=== PATIENT | female | born 1940 | race Caucasian/White ===

== ENCOUNTER → 2016-09-07 | Outpatient (CLI) | payer MEDICARE ==
[~2016-09-07] VITALS: Ht 167.6 cm; Wt 58.1 kg
[~2016-09-07] MED LIST: ATOR1TAB21 PO; IRBE150T12 PO; LIDOCAINE 2% INJ 100 MG/5 ML SDV (FOR ANES.) As Ordered ONE; MULT1TAB10 PO; NS 1,000 ML IV SCH; PROPOFOL 200 MG/20 ML VIAL As Ordered ONE; SYNT50TA PO; TYLE325T5 PO
--- NOTE | 2016-09-07 11:37 | ROOR ---
Patient Name: Jackie Norton Procedure Date: 09/07/2016 11:24 AM Date of : 1940 Age: 76 Room: [facility] Gender: Female Note Status: Finalized Procedure: Upper GI endoscopy Indications: Iron deficiency anemia Providers: Winston Medina MD Referring MD: Iraida Lima DO Requesting Provider: Medicines: Monitored Anesthesia Care Complications: No immediate complications. Procedure: Pre-Anesthesia Assessment: - The heart rate, respiratory rate, oxygen saturations, blood pressure, adequacy of pulmonary ventilation, and response to care were monitored throughout the procedure. The Endoscope was introduced through the mouth, and advanced to the second part of duodenum. The upper GI endoscopy was accomplished without difficulty. The patient tolerated the procedure well. Findings: The Z-line was variable and was found 40 cm from the incisors. The exam of the stomach was otherwise normal. The exam of the duodenum was otherwise normal. Impression: - Z-line variable, 40 cm from the incisors. - No specimens collected. - The examination was otherwise normal. Recommendation: - Patient has a contact number available for emergencies. The signs and symptoms of potential delayed complications were discussed with the patient. Return to normal activities tomorrow. Written discharge instructions were provided to the patient. - Resume previous diet. - Follow an antireflux regimen. - Continue present medications. - Return to referring physician. - The findings and recommendations were discussed with the patient's family. Winston Medina MD Winston Medina MD 09/07/2016 11:37:19 AM This report has been signed electronically. Number of Addenda: 0 Note Initiated On: 09/07/2016 11:24 AM Estimated Blood Loss: Estimated blood loss: none.
--- NOTE | 2016-09-07 11:57 | ROOR ---
Patient Name: Jackie Norton Procedure Date: 09/07/2016 11:25 AM Date of : 1940 Age: 76 Room: [facility] Gender: Female Note Status: Finalized Procedure: Colonoscopy to Cecum Indications: Iron deficiency anemia Providers: Winston Medina MD Referring MD: Iraida Lima DO Requesting Provider: Medicines: Monitored Anesthesia Care Complications: No immediate complications. Procedure: Pre-Anesthesia Assessment: - The heart rate, respiratory rate, oxygen saturations, blood pressure, adequacy of pulmonary ventilation, and response to care were monitored throughout the procedure. The Colonoscope was introduced through the anus and advanced to the cecum, identified by appendiceal orifice and ileocecal valve. The colonoscopy was performed without difficulty. The patient tolerated the procedure well. The quality of the bowel preparation was fair. Findings: The perianal and digital rectal examinations were normal. Non-bleeding internal hemorrhoids were found during retroflexion. The hemorrhoids were small and Grade I (internal hemorrhoids that do not prolapse). Multiple small and large-mouthed diverticula were found in the entire colon. The exam was otherwise without abnormality on direct and retroflexion views. Impression: - Preparation of the colon was fair. - Non-bleeding internal hemorrhoids. - Diverticulosis in the entire examined colon. - The examination was otherwise normal on direct and retroflexion views. - No specimens collected. - The exam was otherwise normal to the cecum. Recommendation: - Patient has a contact number available for emergencies. The signs and symptoms of potential delayed complications were discussed with the patient. Return to normal activities tomorrow. Written discharge instructions were provided to the patient. - High fiber diet. - Discharge patient to home. - Continue present medications. - Repeat colonoscopy for symptoms only, due to age. - Return to referring physician. - The findings and recommendations were discussed with the patient's family. Winston Medina MD Winston Medina MD 09/07/2016 11:57:14 AM This report has been signed electronically. Number of Addenda: 0 Note Initiated On: 09/07/2016 11:25 AM Estimated Blood Loss: Estimated blood loss: none.
[2016-09-07 12:32] VITALS: BP 145/69
== END ==
LOC: M OPP 10:35
PROVIDERS: ATTEND Internal Medicine Gastroenterology
DX: D50.9 Iron deficiency anemia, unspecified (principal); K64.0 First degree hemorrhoids; K57.30 Diverticulosis of large intestine without perforation or abscess without bleeding; K22.8 Other specified diseases of esophagus; E11.9 Type 2 diabetes mellitus without complications; E07.9 Disorder of thyroid, unspecified; I10 Essential (primary) hypertension; E78.00 Pure hypercholesterolemia, unspecified; Z87.891 Personal history of nicotine dependence; Z79.899 Other long term (current) drug therapy

== ENCOUNTER → 2017-04-05 | Outpatient (REF) | payer MEDICARE ==
[~2017-04-05] MED LIST changes: +AMLO5TAB2 PO; +ANUS25SU PR; -LIDOCAINE 2% INJ 100 MG/5 ML SDV (FOR ANES.) As Ordered ONE; +MACR100C43 PO; -NS 1,000 ML IV SCH; -PROPOFOL 200 MG/20 ML VIAL As Ordered ONE; +VITMTA PO
== END ==
LOC: M LAB REF 16:32
PROVIDERS: ATTEND Nurse Practitioner Family
DX: J06.9 Acute upper respiratory infection, unspecified (principal)

== ENCOUNTER 2017-06-06 18:35 | Emergency (ER) | payer MEDICARE ==
[~2017-06-06] VITALS: Ht 167.6 cm; Wt 60.5 kg
[~2017-06-06 18:35] MED LIST changes: -MACR100C43 PO
[2017-06-06 19:51] LABS: BASO % 0.3 % (0.0-1.0); EOS # 0.1 10^3/uL (0.0-0.50); EOS % 0.7 % (0.0-3.0); IMMATURE GRANULOCYTE % 0.4 % (0-0); LYMPH # 1.5 10^3/uL (1.5-4.5); LYMPH % 14.1 % (24.0-44.0); MEAN CORPUSCULAR HEMOGLOBIN 30.8 pg (27.0-33.0); MEAN CORPUSCULAR HGB CONC 32.6 g/dl (32.0-36.5); MEAN CORPUSCULAR VOLUME 94.3 fl (80.0-96.0); MONO # 0.9 10^3/uL (0.0-0.8); MONO % 8.2 % (0.0-5.0); NEUTROPHILS # 8.2 10^3/uL (1.8-7.7); NEUTROPHILS % 76.3 % (36.0-66.0); PLATELET COUNT, AUTOMATED 273 10^3/uL (150-450); WHITE BLOOD COUNT 10.7 10^3/uL (4.0-10.0)
[2017-06-06 20:03] LABS: ANION GAP 8 MEQ/L (8-16); BLOOD UREA NITROGEN 26 MG/DL (7-18); CALCIUM LEVEL 9.1 MG/DL (8.8-10.2); CARBON DIOXIDE LEVEL 26 MEQ/L (21-32); CHLORIDE LEVEL 102 MEQ/L (98-107); CREATININE FOR GFR 0.86 MG/DL (0.55-1.02); GLOMERULAR FILTRATION RATE > 60.0 (>39); GLUCOSE, FASTING 128 MG/DL (83-110); POTASSIUM SERUM 4.5 MEQ/L (3.5-5.1); SODIUM LEVEL 136 MEQ/L (136-145)
[2017-06-06 20:05] LABS: INR 0.98
[2017-06-06 20:31] LABS: ALBUMIN 3.6 GM/DL (3.2-5.2); ALBUMIN/GLOBULIN RATIO 1.24 (1.00-1.93); ALKALINE PHOSPHATASE 56 U/L (45-117); ALT/SGPT 46 U/L (12-78); AST/SGOT 20 U/L (7-37); BILIRUBIN,DIRECT 0.2 MG/DL (0.0-0.2); BILIRUBIN,TOTAL 0.5 MG/DL (0.2-1.0); FREE T4 1.48 NG/DL (0.76-1.46); TOTAL PROTEIN 6.5 GM/DL (6.4-8.2)
[2017-06-06 22:30] VITALS: BP 138/63
[2017-06-06] MEDS ORDERED: NITROFURANTOIN (MACROBID) 100 MG CAP PO ONE (22:30)
[2017-06-06] MEDS ORDERED: MACR100C43 PO (22:30)
--- NOTE | 2017-06-07 09:12 | REP ---
AP PORTABLE CHEST: 06/06/2017. Clinical history: Weakness, possible CHF. Comparison: Chest x-ray 05/31/2017, 05/28/2017. Findings: Lungs are hyperinflated with somewhat flattened diaphragms. Some minor basilar fibrotic change. Cardiomegaly noted. Left atrial enlargement evident. The aorta is calcified at the arch and tortuous. There is venous hypertension without pulmonary edema. No pleural effusion or acute infiltrate. Impression: 1. COPD with some basilar fibrotic change, mild cardiomegaly, pulmonary venous hypertension without edema, effusion or acute infiltrate. 2. Tortuous calcified aorta. Signed by Colt Rogers MD 06/07/2017 05:28 P
--- NOTE | 2017-06-07 12:35 | ECGEPIP ---
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
== END 2017-06-06 23:21 | disposition home or self-care (01) ==
LOC: M ED 18:35
DX: N39.0 Urinary tract infection, site not specified (principal); I50.9 Heart failure, unspecified; I11.0 Hypertensive heart disease with heart failure; Z79.899 Other long term (current) drug therapy; Z86.79 Personal history of other diseases of the circulatory system; Z87.891 Personal history of nicotine dependence

== ENCOUNTER → 2017-06-11 | Outpatient (REF) | payer MEDICARE ==
[~2017-06-11] MED LIST changes: +MACR100C43 PO
== END ==
LOC: M LAB REF 14:10
PROVIDERS: ATTEND Internal Medicine Nephrology
DX: N39.0 Urinary tract infection, site not specified (principal)

== ENCOUNTER → 2017-06-19 | Outpatient (CLI) | payer MEDICARE ==
[~2017-06-19] MED LIST changes: +ISOVUE-370 76% 100ML VIAL (Q9967) As Ordered ONE
--- NOTE | 2017-06-19 16:32 | REP ---
Clinical: Hepatic mass. Technique: Axial precontrast, arterial phase, portal venous phase, and delayed phase images of the abdomen using 100 ml Isovue 370 intravenous contrast material with coronal and sagittal re-formations. Findings: A 3.0 cm mass is identified in the medial posterior right lobe of the liver which demonstrates peripheral enhancement characteristics consistent with hemangioma (Portal venous sequence images 19-31). Liver is otherwise unremarkable. Spleen, pancreas, gallbladder, bilateral adrenal glands and kidneys are relatively normal. Small subcentimeter renal cysts noted. Visualized portions of the enteric system are grossly unremarkable incidental [place] sign noted. No ascites. No free air. Lung bases clear. Impression: Hepatic mass corresponds to benign hemangioma. Signed by Chuy Musa MD 06/19/2017 04:23 P
== END ==
LOC: M RAD 15:10
PROVIDERS: ATTEND Nurse Practitioner Family
DX: E87.1 Hypo-osmolality and hyponatremia (principal)
CPT/HCPCS: 74170; Q9967

== ENCOUNTER 2017-07-29 09:59 | Emergency (ER) | payer MEDICARE | END 2017-07-29 11:39 | disposition home or self-care (01) | LOC: M ED 09:59 | DX: H72.91 Unspecified perforation of tympanic membrane, right ear (principal); I10 Essential (primary) hypertension; Z79.899 Other long term (current) drug therapy | CPT/HCPCS: 99282 ==

== ENCOUNTER 2017-09-05 05:23 | Emergency (ER) | payer MEDICARE ==
[2017-09-05 05:45] LABS: BASO % 0.7 % (0.0-1.0); EOS # 0.1 10^3/uL (0.0-0.50); EOS % 1.2 % (0.0-3.0); HEMATOCRIT 36.1 % (36.0-47.0); HEMOGLOBIN 11.5 g/dl (12.0-16.0); IMMATURE GRANULOCYTE % 0.2 % (0-3.0); LYMPH # 1.5 10^3/uL (1.5-4.5); LYMPH % 27.2 % (24.0-44.0); MEAN CORPUSCULAR HEMOGLOBIN 30.3 pg (27.0-33.0); MEAN CORPUSCULAR HGB CONC 31.9 g/dl (32.0-36.5); MONO # 0.6 10^3/uL (0.0-0.8); MONO % 10.4 % (0.0-5.0); NEUTROPHILS # 3.4 10^3/uL (1.8-7.7); NEUTROPHILS % 60.3 % (36.0-66.0); PLATELET COUNT, AUTOMATED 239 10^3/uL (150-450); RED CELL DISTRIBUTION WIDTH 12.6 % (11.5-14.5); WHITE BLOOD COUNT 5.7 10^3/uL (4.0-10.0)
[2017-09-05 06:20] LABS: ANION GAP 8 MEQ/L (8-16); BLOOD UREA NITROGEN 23 MG/DL (7-18); CALCIUM LEVEL 8.7 MG/DL (8.8-10.2); CARBON DIOXIDE LEVEL 29 MEQ/L (21-32); CHLORIDE LEVEL 105 MEQ/L (98-107); CPK CREATINE PHOSPHOKINASE 93 U/L (26-192); CREATININE FOR GFR 0.78 MG/DL (0.55-1.30); FREE T4 1.22 NG/DL (0.76-1.46); GLOMERULAR FILTRATION RATE > 60.0 (>39); GLUCOSE, FASTING 117 MG/DL (70-100); SODIUM LEVEL 142 MEQ/L (136-145); TROPONIN I < 0.02 NG/ML (< 0.10)
[2017-09-05 06:26] LABS: MB/CK RELATIVE INDEX 3.22 (< OR =4)
[2017-09-05 07:00] LABS: INFLUENZA A AMPLIFICATION NEGATIVE (NEGATIVE); INFLUENZA B AMPLIFICATION NEGATIVE (NEGATIVE)
[2017-09-05] MEDS: ACETAMINOPHEN TAB 650MG DOSE (2X325MG) PO (07:33)
== END 2017-09-05 07:38 | disposition home or self-care (01) ==
LOC: M ED 05:23
DX: B34.9 Viral infection, unspecified (principal); H72.91 Unspecified perforation of tympanic membrane, right ear; I49.3 Ventricular premature depolarization; I50.9 Heart failure, unspecified; I11.0 Hypertensive heart disease with heart failure; E78.9 Disorder of lipoprotein metabolism, unspecified; Z79.890 Hormone replacement therapy; Z79.2 Long term (current) use of antibiotics; Z79.899 Other long term (current) drug therapy; Z86.19 Personal history of other infectious and parasitic diseases; Z87.891 Personal history of nicotine dependence
CPT/HCPCS: 71045

== ENCOUNTER → 2017-12-20 | Outpatient (REF) | payer MEDICARE | LOC: M LAB REF 13:11 | DX: N39.0 Urinary tract infection, site not specified (principal) | CPT/HCPCS: 87086 ==

== ENCOUNTER → 2018-04-25 | Outpatient (REF) | payer MEDICARE | LOC: M LAB REF 13:10 | DX: N39.0 Urinary tract infection, site not specified (principal) | CPT/HCPCS: 87086 ==

== ENCOUNTER → 2019-01-08 | Outpatient (REF) | payer MEDICARE ==
[~2019-01-08] MED LIST changes: -AMLO5TAB2 PO; +AMLO5TAB6 PO; +AUGM875T28 PO; -ISOVUE-370 76% 100ML VIAL (Q9967) As Ordered ONE; +OFLOSO
[2019-01-08 14:48] LABS: IRON (FE) 66 UG/DL (50-170); PERCENT SATURATION 23.9 % (13.2-45.0); TOTAL IRON BINDING CAPACITY 276 UG/DL (250-450)
[2019-01-08 14:53] LABS: FOLATE > 24.0 NG/ML; VITAMIN B12 LEVEL 248 PG/ML
== END ==
LOC: M LAB REF 12:58
PROVIDERS: ATTEND Internal Medicine
DX: D64.9 Anemia, unspecified (principal)

== ENCOUNTER → 2019-02-02 | Outpatient (REF) | payer MEDICARE ==
[2019-02-02 13:16] LABS: HEMATOCRIT 30.8 % (36.0-47.0)
[2019-02-02 13:21] LABS: PERCENT SATURATION 35.2 % (13.2-45.0)
== END ==
LOC: M LAB REF 12:39
PROVIDERS: ATTEND Nurse Practitioner Adult Health
DX: D64.9 Anemia, unspecified (principal)

== ENCOUNTER → 2019-04-28 | Outpatient (REF) | payer MEDICARE ==
[2019-04-28 14:02] LABS: FOLATE > 24.0 NG/ML; IRON (FE) 73 UG/DL (50-170); PERCENT SATURATION 27.3 % (13.2-45.0); TOTAL IRON BINDING CAPACITY 267 UG/DL (250-450); VITAMIN B12 LEVEL 282 PG/ML
== END ==
LOC: M LAB REF 12:47
PROVIDERS: ATTEND Nurse Practitioner Family
DX: N18.9 Chronic kidney disease, unspecified (principal); D63.1 Anemia in chronic kidney disease

== ENCOUNTER → 2019-05-12 | Outpatient (CLI) | payer MEDICARE ==
[~2019-05-12] MED LIST changes: +GASTROGRAFIN SOLUTION 30ML (Q9963) As Ordered ONE; +ISOVUE-370 76% 100ML VIAL (Q9967) As Ordered ONE
--- NOTE | 2019-05-12 15:12 | REP ---
REASON FOR EXAM: Weight loss and hematuria. The lack of intravenous contrast decreases the sensitivity of the exam. Prior examination of 06/19/2017 was reviewed. That examination was performed before and after intravenous contrast; however, the noncontrast-enhanced portion of that examination was of the abdomen only. The prior exam showed a benign hepatic hemangioma. There is no significant change in appearance of the lung bases. There is cylindrical bronchiectasis and mild basilar fibrotic change, status quo. Limited evaluation of the liver again shows a low density lesion in the posterior segment of the right lobe, which is unchanged, consistent with the previously diagnosed benign hepatic hemangioma. The gallbladder is within normal limits. There are unchanged bilateral renal cysts. There are no nephroliths. There are no ureteroliths. There is gaseous distention of the stomach. There are multiple dilated gas and contrast-filled small bowel loops. There is marked colonic redundancy. Nonopacified bowel abuts the retroperitoneum. Retroperitoneal adenopathy could not be ruled out by this exam. CT PELVIS: There is marked thickening of the morfin of the urinary bladder, and there are multiple urinary bladder wall diverticula. Evaluation of these findings is limited due to the lack of intravenous contrast administration. I cannot rule out the possibility of a bladder mass wall or other pelvic mass since the pelvic bowel loops are noncontrast opacified and no intravenous contrast was administered. There are bilateral pelvic phleboliths. Bone window technique throughout the exam shows the bones to be demineralized with spinal, hip, and sacroiliac joint degenerative changes. IMPRESSION: 1. Chronic lung base changes, as described above. 2. There is gaseous distention of the stomach, of uncertain etiology. This needs to correlated clinically. 3. There is evidence of an ileus. 4. Markedly abnormal urinary bladder, as described above. Cystitis and/or neoplastic change cannot be ruled out by this exam. 5. Simple bilateral renal cysts. 6. Other findings and limitations as described above. Electronically Signed by Rashaad Diaz DO 05/12/2019 03:49 P
== END ==
LOC: M RAD 12:41
PROVIDERS: ATTEND Nurse Practitioner Family
DX: J47.9 Bronchiectasis, uncomplicated (principal); N28.1 Cyst of kidney, acquired; N32.3 Diverticulum of bladder; R31.9 Hematuria, unspecified; M85.89 Other specified disorders of bone density and structure, multiple sites; R63.4 Abnormal weight loss
CPT/HCPCS: 74176; Q9963

== ENCOUNTER → 2019-05-13 | Outpatient (REF) | payer MEDICARE ==
[~2019-05-13] MED LIST changes: -GASTROGRAFIN SOLUTION 30ML (Q9963) As Ordered ONE; -ISOVUE-370 76% 100ML VIAL (Q9967) As Ordered ONE
[2019-05-13 17:47] LABS: HEMATOCRIT 27.4 % (36.0-47.0)
[2019-05-13 18:28] LABS: PERCENT SATURATION 26.2 % (13.2-45.0)
== END ==
LOC: M LAB REF 17:10
PROVIDERS: ATTEND Nurse Practitioner Adult Health
DX: D64.9 Anemia, unspecified (principal)

== ENCOUNTER → 2019-05-18 | Outpatient (REF) | payer MEDICARE ==
[2019-05-18 14:00] LABS: APPEARANCE, URINE TURBID (CLEAR); BACTERIA, URINE AUTO 2+ (NEGATIVE); BILIRUBIN, URINE AUTO NEGATIVE (NEGATIVE); BLOOD, URINE BLOOD 2+ (NEGATIVE); COLOR, URINE AMBER (YELLOW); GLUCOSE, URINE (UA) AUTO NEGATIVE (NEGATIVE); KETONE, URINE AUTO TRACE mg/dL (NEGATIVE); LEUKOCYTE ESTERASE, URINE AUTO 1+ (NEGATIVE); NITRITE, URINE AUTO NEGATIVE (NEGATIVE); PROTEIN, URINE AUTO 2+ mg/dL (NEGATIVE); RBC, URINE AUTO 81 /HPF (0-3); SPECIFIC GRAVITY URINE AUTO 1.011 (1.002-1.035); SQUAMOUS EPITHELIAL CELL UR AU 0 /HPF (0-6); UROBILINOGEN, URINE AUTO 0.2 mg/dL (0.0-2.0); WBC, URINE AUTO TNTC /HPF (0-3)
== END ==
LOC: M SMT 13:31
PROVIDERS: ATTEND Nurse Practitioner Women's Health
DX: R31.29 Other microscopic hematuria (principal)
CPT/HCPCS: 81001; 87086; 88108; G0463

== ENCOUNTER → 2019-05-21 | Outpatient (REF) | payer MEDICARE | LOC: M LAB REF 12:20 | PROVIDERS: ATTEND Nurse Practitioner Adult Health | DX: D64.9 Anemia, unspecified (principal); R31.29 Other microscopic hematuria ==

== ENCOUNTER → 2019-06-03 | Outpatient (REF) | payer MEDICARE ==
[2019-06-03 14:01] LABS: BACTERIA, URINE AUTO 1+ (NEGATIVE); RBC, URINE AUTO 12 /HPF (0-3); SQUAMOUS EPITHELIAL CELL UR AU 0 /HPF (0-6); WBC, URINE AUTO TNTC /HPF (0-3)
== END ==
LOC: M SMT 13:34
PROVIDERS: ATTEND Specialist
DX: N32.89 Other specified disorders of bladder (principal)
CPT/HCPCS: 52281; 81015; 87086; G0463

== ENCOUNTER → 2019-08-04 | Outpatient (CLI) | payer MEDICARE ==
[~2019-08-04] MED LIST changes: -IRBE150T12 PO; +IRBE150T7 PO
--- NOTE | 2019-08-04 12:05 | REP ---
RENAL ULTRASOUND: Real-time sonographic evaluation of the kidneys performed. Both kidneys are hyperechoic suggesting medical renal disease. Right kidney measures 10.3 x 5.3 x 3.5 cm and left kidney 11.4 x 5.0 x 4.8 cm. There is no hydronephrosis bilaterally. Multiple small cysts are seen in each kidney, largest on the right is in the mid aspect laterally 1.4 cm in maximum diameter with a 7 mm cyst seen in upper pole and 9 mm cyst in the lower pole. Largest cyst on the left is in the upper aspect 1.5 cm in maximum diameter with an adjacent smaller cyst just inferior to that 1.3 cm in maximum diameter. IMPRESSION: Echogenic kidneys suggesting medical renal disease. No hydronephrosis. Small bilateral renal cysts. Electronically Signed by Tan Hennessy MD 08/05/2019 09:50 A
--- NOTE | 2019-08-04 12:09 | REP ---
BLADDER ULTRASOUND: Real-time sonographic evaluation of the bladder performed. Bladder measures 10.2 x 11.9 x 7.8 cm for a total volume of 618 mL. Postvoid residual is 443 mL which is 72% of the original volume. Bladder wall is markedly trabeculated and irregular. Echogenic debris is seen within the bladder as well. Large posterior diverticulum is present. Ureteral jets are not visualized in the bladder with Doppler color evaluation. IMPRESSION: Markedly trabeculated irregular thickened bladder wall diffusely. Echogenic debris in the bladder. Significant post-void residual. Electronically Signed by Tan Hennessy MD 08/05/2019 09:50 A
== END ==
LOC: M RAD 10:19
PROVIDERS: ATTEND Nurse Practitioner Women's Health
DX: N32.89 Other specified disorders of bladder (principal); N32.3 Diverticulum of bladder

== ENCOUNTER → 2019-08-07 | Outpatient (REF) | payer MEDICARE ==
[~2019-08-07] MED LIST changes: +IRBE150T12 PO; -IRBE150T7 PO
[2019-08-07 14:15] LABS: APPEARANCE, URINE CLOUDY (CLEAR); BACTERIA, URINE AUTO 2+ (NEGATIVE); BILIRUBIN, URINE AUTO NEGATIVE (NEGATIVE); BLOOD, URINE BLOOD 1+ (NEGATIVE); COLOR, URINE YELLOW (YELLOW); GLUCOSE, URINE (UA) AUTO NEGATIVE (NEGATIVE); KETONE, URINE AUTO NEGATIVE (NEGATIVE); LEUKOCYTE ESTERASE, URINE AUTO 3+ (NEGATIVE); NITRITE, URINE AUTO NEGATIVE (NEGATIVE); PROTEIN, URINE AUTO 1+ mg/dL (NEGATIVE); RBC, URINE AUTO 74 /HPF (0-3); SPECIFIC GRAVITY URINE AUTO 1.013 (1.002-1.035); SQUAMOUS EPITHELIAL CELL UR AU 4 /HPF (0-6); UROBILINOGEN, URINE AUTO 0.2 mg/dL (0.0-2.0); WBC, URINE AUTO TNTC /HPF (0-3)
== END ==
LOC: M SMT 13:33
PROVIDERS: ATTEND Nurse Practitioner Women's Health
DX: R31.29 Other microscopic hematuria (principal)
CPT/HCPCS: 51798; 81001; 87086; G0463

== ENCOUNTER → 2019-08-18 | Outpatient (REF) | payer MEDICARE ==
[2019-08-19 10:20] LABS: VITAMIN B12 LEVEL 994 PG/ML (247-911)
== END ==
LOC: M LAB REF 16:33
PROVIDERS: ATTEND Nurse Practitioner Adult Health
DX: R41.3 Other amnesia (principal); D51.9 Vitamin B12 deficiency anemia, unspecified

== ENCOUNTER → 2020-03-14 | Outpatient (CLI) | payer MEDICARE ==
[~2020-03-14] MED LIST changes: +AMLO1TAB24 PO; -AMLO5TAB6 PO; -IRBE150T12 PO; +IRBE150T7 PO
== END ==
LOC: M RAD 08:00
PROVIDERS: ATTEND Internal Medicine
DX: H54.52A1 Low vision left eye category 1, normal vision right eye (principal)

== ENCOUNTER → 2020-03-15 | Outpatient (REF) | payer MEDICARE ==
[2020-05-02 21:57] LABS: BASO % 0.3 % (0.0-1.0); EOS # 0.1 10^3/uL (0.0-0.5); HEMATOCRIT 36.4 % (36.0-47.0); HEMOGLOBIN 11.2 g/dl (12.0-15.5); LYMPH # 1.7 10^3/uL (1.5-5.0); LYMPH % 27.1 % (24.0-44.0); MEAN CORPUSCULAR HEMOGLOBIN 30.4 pg (27.0-33.0); MEAN CORPUSCULAR HGB CONC 30.8 g/dl (32.0-36.5); MEAN CORPUSCULAR VOLUME 98.6 fl (80.0-96.0); MONO # 0.5 10^3/uL (0.0-0.8); MONO % 8.4 % (0.0-5.0); NEUTROPHILS # 3.9 10^3/uL (1.5-8.5); NEUTROPHILS % 62.9 % (36.0-66.0); PLATELET COUNT, AUTOMATED 258 10^3/uL (150-450); RED BLOOD COUNT 3.69 10^6/uL (4.00-5.40); WHITE BLOOD COUNT 6.2 10^3/uL (4.0-10.0)
[2020-05-02 22:22] LABS: APPEARANCE, URINE CLOUDY (CLEAR); BACTERIA, URINE AUTO 1+ (NEGATIVE); BILIRUBIN, URINE AUTO NEGATIVE (NEGATIVE); BLOOD, URINE BLOOD 1+ (NEGATIVE); COLOR, URINE YELLOW (YELLOW); GLUCOSE, URINE (UA) AUTO NEGATIVE (NEGATIVE); KETONE, URINE AUTO NEGATIVE (NEGATIVE); LEUKOCYTE ESTERASE, URINE AUTO 1+ (NEGATIVE); MUCUS, URINE SMALL (NEGATIVE); NITRITE, URINE AUTO POSITIVE (NEGATIVE); PROTEIN, URINE AUTO NEGATIVE (NEGATIVE); RBC, URINE AUTO 4 /HPF (0-3); SQUAMOUS EPITHELIAL CELL UR AU 1 /HPF (0-6); UROBILINOGEN, URINE AUTO 0.2 mg/dL (0.0-2.0); WBC, URINE AUTO TNTC /HPF (0-3)
[2020-05-09 04:54] LABS: ALBUMIN 3.5 GM/DL (3.2-5.2); BLOOD UREA NITROGEN 27 MG/DL (7-18); CALCIUM LEVEL 8.9 MG/DL (8.8-10.2); CARBON DIOXIDE LEVEL 27 MEQ/L (21-32); CHLORIDE LEVEL 105 MEQ/L (98-107); CREATININE FOR GFR 0.79 MG/DL (0.55-1.30); GLOMERULAR FILTRATION RATE > 60.0 (>32); GLUCOSE, FASTING 86 MG/DL (70-100); PHOSPHORUS LEVEL 3.6 MG/DL (2.5-4.9); POTASSIUM SERUM 4.4 MEQ/L (3.5-5.1); SODIUM LEVEL 137 MEQ/L (136-145)
== END ==
LOC: SKLAB3 07:00
PROVIDERS: ATTEND Internal Medicine
DX: D64.9 Anemia, unspecified (principal); N18.3 Chronic kidney disease, stage 3 (moderate)

== ENCOUNTER → 2020-03-15 | Outpatient (REF) | payer MEDICARE | LOC: CANPREREF → SKLAB3 14:03 | PROVIDERS: ATTEND Internal Medicine | DX: D64.9 Anemia, unspecified (principal); N18.3 Chronic kidney disease, stage 3 (moderate) ==

== ENCOUNTER → 2020-06-09 | Outpatient (REF) | LOC: SKLAB3 11:50 | PROVIDERS: ATTEND Internal Medicine | DX: Z20.828 Contact with and (suspected) exposure to other viral communicable diseases (principal) ==

== ENCOUNTER → 2020-06-15 | Outpatient (REF) | payer MEDICARE | LOC: SKLAB3 06-14 14:21 → EDSTATUS 07-07 12:59 | PROVIDERS: ATTEND Internal Medicine | DX: Z20.818 Contact with and (suspected) exposure to other bacterial communicable diseases (principal) ==

== ENCOUNTER → 2020-06-22 | Outpatient (REF) | payer MEDICARE | LOC: SKLAB3 08:00 | PROVIDERS: ATTEND Internal Medicine | DX: Z20.828 Contact with and (suspected) exposure to other viral communicable diseases (principal) ==

== ENCOUNTER → 2020-06-27 | Outpatient (REF) | payer MEDICARE ==
[2020-06-27 12:49] LABS: BLOOD UREA NITROGEN 27 MG/DL (7-18); CALCIUM LEVEL 9.1 MG/DL (8.8-10.2); CARBON DIOXIDE LEVEL 27 MEQ/L (21-32); CHLORIDE LEVEL 109 MEQ/L (98-107); CREATININE FOR GFR 0.92 MG/DL (0.55-1.30); GLOMERULAR FILTRATION RATE > 60.0 (>32); GLUCOSE, FASTING 122 MG/DL (70-100); POTASSIUM SERUM 4.4 MEQ/L (3.5-5.1); SODIUM LEVEL 141 MEQ/L (136-145); THYROID STIMULATING HORMONE 0.039 uIU/ML (0.358-3.740)
== END ==
LOC: SKLAB3 07:00
PROVIDERS: ATTEND Internal Medicine
DX: E03.9 Hypothyroidism, unspecified (principal); F03.90 Unspecified dementia, unspecified severity, without behavioral disturbance, psychotic disturbance, mood disturbance, and anxiety

== ENCOUNTER → 2020-06-29 | Outpatient (REF) | payer MEDICARE | LOC: SKLAB3 08:00 | PROVIDERS: ATTEND Internal Medicine | DX: Z20.828 Contact with and (suspected) exposure to other viral communicable diseases (principal) ==

== ENCOUNTER → 2020-07-01 | Outpatient (REF) | payer MEDICARE ==
--- NOTE | 2020-07-01 11:45 | ECGEPIP ---
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
== END ==
LOC: SKLAB3 10:09
PROVIDERS: ATTEND Internal Medicine
DX: I51.7 Cardiomegaly (principal)

== ENCOUNTER → 2020-07-06 | Outpatient (REF) | payer MEDICARE | LOC: SKLAB3 07:18 | PROVIDERS: ATTEND Internal Medicine | DX: Z20.828 Contact with and (suspected) exposure to other viral communicable diseases (principal) ==

== ENCOUNTER → 2020-07-11 | Outpatient (REF) | payer MEDICARE ==
[2020-07-11 15:15] LABS: HEMATOCRIT 33.2 % (36.0-47.0); HEMOGLOBIN 9.9 g/dl (12.0-15.5); MEAN CORPUSCULAR HEMOGLOBIN 29.1 pg (27.0-33.0); MEAN CORPUSCULAR HGB CONC 29.8 g/dl (32.0-36.5); MEAN CORPUSCULAR VOLUME 97.6 fl (80.0-96.0); PLATELET COUNT, AUTOMATED 201 10^3/uL (150-450)
[2020-07-11 15:39] LABS: NT-PRO BNP 790 PG/ML (<450); TROPONIN I < 0.02 NG/ML (< 0.10)
[2020-07-11 15:45] LABS: CALCIUM LEVEL 8.8 MG/DL (8.8-10.2); CREATININE FOR GFR 0.95 MG/DL (0.55-1.30); POTASSIUM SERUM 4.1 MEQ/L (3.5-5.1); THYROID STIMULATING HORMONE 0.281 uIU/ML (0.358-3.740)
--- NOTE | 2020-07-11 17:04 | REP ---
INDICATION: SOB. COMPARISON: Comparison radiograph September 05, 2017.. TECHNIQUE: Portable upright AP radiograph. FINDINGS: Lungs are somewhat hyperinflated. There is very slight blunting of the right lateral pleural angle. A mild bibasilar interstitial pattern is seen. Heart is mildly enlarged. The aorta is tortuous. Pulmonary vasculature is not increased. There is diffuse osteopenia. No definite infiltrate. IMPRESSION: Slight blunting right lateral pleural angle. Mild cardiomegaly. No definite infiltrate. <Electronically signed by Arslan Garzon > 07/11/20 [id number]
--- NOTE | 2020-07-12 08:36 | ECGEPIP ---
[facility] Test Date: 2020-07-11 Pat Name: CIPRIANO LOPEZ Department: Room: - Gender: Female Rda: RF : 1940 Requested By: Wolfgang Olivier Order Number: [id number] Reading MD: Matthew Noel Measurements Intervals [place] Rate: 60 P: 71 [place]: 176 QRS: 62 QRSD: 89 T: 75 QT: 412 QTc: 415 Interpretive Statements Normal sinus rhythm. Isolated PVC. Different precordial lead placement but otherwise unchanged from 07/01/20 Electronically Signed on 07-12-2020 8:35:52 EST by Matthew Noel
== END ==
LOC: SKLAB3 14:14
PROVIDERS: ATTEND Internal Medicine
DX: I51.7 Cardiomegaly (principal); M85.9 Disorder of bone density and structure, unspecified; Z79.899 Other long term (current) drug therapy

== ENCOUNTER → 2020-07-12 | Outpatient (REF) | payer MEDICARE | LOC: SKLAB3 09:57 | PROVIDERS: ATTEND Internal Medicine | DX: R06.02 Shortness of breath (principal) ==

== ENCOUNTER → 2020-07-13 | Outpatient (REF) | payer MEDICARE | LOC: SKLAB3 10:29 | PROVIDERS: ATTEND Internal Medicine | DX: Z20.828 Contact with and (suspected) exposure to other viral communicable diseases (principal) ==

== ENCOUNTER → 2020-07-19 | Outpatient (CLI) | payer MEDICARE, MEDICAID ==
--- NOTE | 2020-07-21 12:22 | ECHO ---
DATE OF PROCEDURE: 07/19/2020 Age: 80 Gender: Female Height: Weight: REFERRING PHYSICIAN: Wolfgang Olivier Jr., M.D. REASON FOR STUDY: Shortness of breath. 2D MEASUREMENTS: IVS 1.1 cm LV 3.9 cm LVPW 1.0 cm LA 3.3 cm Aorta 3.3 cm IVC 2.0 cm DOPPLER MEASUREMENT Peak velocity across the aortic valve 1.8 msec Peak velocity across the LVOT 0.75 msec Peak gradient across the aortic valve 13 mmHg Mean gradient across the aortic valve 6 mmHg Mitral E 1.3 Mitral A 1.5 with a ratio of 0.9 Maximum tricuspid valve velocity 2.7 msec 2D COMMENTS: * Normal left ventricular size, wall thickness, and normal global left ventricular systolic function. The estimated left ventricular systolic ejection fraction is 60% to 65%. * Normal left atrium. Normal right atrium and right ventricle. * The atrial septum appeared to be normal without evidence of defect or shunt. * Normal aortic root. * A small pericardial effusion was noted. No evidence of cardiac tamponade. * Mildly calcified aortic valve with normal leaflet excursion. Mildly calcified mitral annulus with normal anterior mitral valve leaflet motion. Normal tricuspid valve and pulmonic valve. The proximal pulmonary artery branches were not well visualized. * The inferior vena cava is mildly enlarged, central venous pressure might be elevated. DOPPLER: It detects mild aortic regurgitation, moderate mitral regurgitation, and moderate tricuspid regurgitation. The calculated pulmonary artery systolic pressure varies between 30-40 mmHg. Abnormal relaxation pattern was noted across the mitral valve leaflets, as well as the mitral valve annulus consistent with features of grade 1 left ventricular diastolic dysfunction. IMPRESSION: * Normal global left ventricular systolic function. There are some features of grade 1 left ventricular diastolic dysfunction manifested by abnormal relaxation. * Aortic valve sclerosis with mild aortic regurgitation and trivial aortic stenosis. * Mitral annular calcification with moderate mitral regurgitation. * Moderate tricuspid regurgitation with mild pulmonary hypertension. * A small pericardial effusion was noted, no evidence of cardiac tamponade. MTDD
== END ==
LOC: M CARPUL 08:29
PROVIDERS: ATTEND Internal Medicine
DX: J90 Pleural effusion, not elsewhere classified (principal); I35.0 Nonrheumatic aortic (valve) stenosis

== ENCOUNTER → 2020-07-20 | Outpatient (REF) | payer MEDICARE | LOC: SKLAB3 07:00 | PROVIDERS: ATTEND Internal Medicine | DX: Z20.828 Contact with and (suspected) exposure to other viral communicable diseases (principal) ==

== ENCOUNTER → 2020-07-27 | Outpatient (REF) | payer MEDICARE | LOC: SKLAB3 07:00 | PROVIDERS: ATTEND Internal Medicine | DX: Z20.828 Contact with and (suspected) exposure to other viral communicable diseases (principal) ==

== ENCOUNTER → 2020-08-03 | Outpatient (REF) | payer MEDICARE | LOC: SKLAB3 10:05 | PROVIDERS: ATTEND Internal Medicine | DX: Z11.52 Encounter for screening for COVID-19 (principal) ==

== ENCOUNTER → 2020-08-10 | Outpatient (REF) | payer MEDICARE | LOC: SKLAB3 07:00 | PROVIDERS: ATTEND Internal Medicine | DX: Z20.822 Contact with and (suspected) exposure to COVID-19 (principal) ==

== ENCOUNTER → 2020-08-17 | Outpatient (REF) | payer MEDICARE | LOC: SKLAB3 06:59 | PROVIDERS: ATTEND Internal Medicine | DX: Z20.822 Contact with and (suspected) exposure to COVID-19 (principal) ==

== ENCOUNTER → 2020-08-24 | Outpatient (REF) | payer MEDICARE | LOC: SKLAB3 08:00 | PROVIDERS: ATTEND Internal Medicine | DX: Z20.822 Contact with and (suspected) exposure to COVID-19 (principal) ==

== ENCOUNTER → 2020-08-30 | Outpatient (REF) | payer MEDICARE ==
[2020-08-30 09:04] LABS: CHOLESTEROL RISK RATIO 1.8 (<5); THYROID STIMULATING HORMONE 2.75 uIU/ML (0.358-3.740)
[2020-08-30 10:20] LABS: HEMOGLOBIN A1c 5.8 %
== END ==
LOC: SKLAB3 07:00
PROVIDERS: ATTEND Internal Medicine
DX: E03.9 Hypothyroidism, unspecified (principal); E78.5 Hyperlipidemia, unspecified; E11.9 Type 2 diabetes mellitus without complications

== ENCOUNTER → 2020-08-31 | Outpatient (REF) | payer MEDICARE | LOC: SKLAB3 07:00 | PROVIDERS: ATTEND Internal Medicine | DX: Z11.52 Encounter for screening for COVID-19 (principal) ==

== ENCOUNTER → 2020-09-07 | Outpatient (REF) | payer MEDICARE | LOC: SKLAB3 11:39 | PROVIDERS: ATTEND Internal Medicine | DX: Z20.822 Contact with and (suspected) exposure to COVID-19 (principal) ==

== ENCOUNTER → 2020-09-13 | Outpatient (REF) | payer MEDICARE ==
[2020-09-13 11:04] LABS: HEMATOCRIT 34.8 % (36.0-47.0); HEMOGLOBIN 10.7 g/dl (12.0-15.5); MEAN CORPUSCULAR HEMOGLOBIN 30.4 pg (27.0-33.0); MEAN CORPUSCULAR HGB CONC 30.7 g/dl (32.0-36.5); MEAN CORPUSCULAR VOLUME 98.9 fl (80.0-96.0); PLATELET COUNT, AUTOMATED 215 10^3/uL (150-450); RED BLOOD COUNT 3.52 10^6/uL (4.00-5.40); WHITE BLOOD COUNT 7.3 10^3/uL (4.0-10.0)
[2020-09-13 11:24] LABS: HEMOGLOBIN A1c 6.2 %
[2020-09-13 11:32] LABS: ALBUMIN 3.2 GM/DL (3.2-5.2); ALT/SGPT 39 U/L (12-78); BILIRUBIN,TOTAL 0.3 MG/DL (0.2-1.0); BLOOD UREA NITROGEN 21 MG/DL (7-18); CALCIUM LEVEL 8.4 MG/DL (8.8-10.2); CARBON DIOXIDE LEVEL 31 MEQ/L (21-32); CHLORIDE LEVEL 105 MEQ/L (98-107); CHOLESTEROL LEVEL 106 MG/DL (<200); CHOLESTEROL RISK RATIO 1.927 (<5); CREATININE FOR GFR 0.82 MG/DL (0.55-1.30); GLOMERULAR FILTRATION RATE > 60.0 (>32); GLUCOSE, FASTING 116 MG/DL (70-100); HDL CHOLESTEROL 55 MG/DL (>40); LDL CHOLESTEROL 29 MG/DL (<100); NON-HDL-C 51 MG/DL; SODIUM LEVEL 142 MEQ/L (136-145); TOTAL PROTEIN 5.8 GM/DL (6.4-8.2); TRIGLYCERIDES LEVEL 108 MG/DL (<150)
[2020-09-13 11:40] LABS: VITAMIN B12 LEVEL 616 PG/ML (247-911)
== END ==
LOC: SKLAB3 06:59
PROVIDERS: ATTEND Internal Medicine
DX: F03.90 Unspecified dementia, unspecified severity, without behavioral disturbance, psychotic disturbance, mood disturbance, and anxiety (principal); E03.9 Hypothyroidism, unspecified; E78.5 Hyperlipidemia, unspecified; Z79.899 Other long term (current) drug therapy

== ENCOUNTER → 2020-09-14 | Outpatient (REF) | payer MEDICARE | LOC: SKLAB3 07:00 | PROVIDERS: ATTEND Internal Medicine | DX: Z20.822 Contact with and (suspected) exposure to COVID-19 (principal) ==

== ENCOUNTER → 2020-09-15 | Outpatient (REF) | payer MEDICARE ==
[2020-09-15 15:24] LABS: BASO % 0.6 % (0.0-1.0); EOS # 0.1 10^3/uL (0.0-0.5); EOS % 1.9 % (0.0-3.0); HEMATOCRIT 36.2 % (36.0-47.0); HEMOGLOBIN 10.9 g/dl (12.0-15.5); LYMPH # 1.8 10^3/uL (1.5-5.0); MEAN CORPUSCULAR HEMOGLOBIN 29.9 pg (27.0-33.0); MEAN CORPUSCULAR HGB CONC 30.1 g/dl (32.0-36.5); MEAN CORPUSCULAR VOLUME 99.5 fl (80.0-96.0); MONO # 0.7 10^3/uL (0.0-0.8); MONO % 10.2 % (2.0-8.0); NEUTROPHILS # 4.2 10^3/uL (1.5-8.5); NEUTROPHILS % 60.7 % (36.0-66.0); PLATELET COUNT, AUTOMATED 213 10^3/uL (150-450); RED BLOOD COUNT 3.64 10^6/uL (4.00-5.40); WHITE BLOOD COUNT 6.9 10^3/uL (4.0-10.0)
[2020-09-15 15:42] LABS: MAGNESIUM LEVEL 2.3 MG/DL (1.8-2.4)
[2020-09-15 16:21] LABS: PTH INTACT 51.6 PG/ML (18.5-88.0)
[2020-09-15 16:28] LABS: APPEARANCE, URINE CLOUDY (CLEAR); BACTERIA, URINE AUTO 2+ (NEGATIVE); BILIRUBIN, URINE AUTO NEGATIVE (NEGATIVE); BLOOD, URINE BLOOD 1+ (NEGATIVE); COLOR, URINE YELLOW (YELLOW); GLUCOSE, URINE (UA) AUTO NEGATIVE (NEGATIVE); KETONE, URINE AUTO NEGATIVE (NEGATIVE); LEUKOCYTE ESTERASE, URINE AUTO 3+ (NEGATIVE); MUCUS, URINE SMALL (NEGATIVE); NITRITE, URINE AUTO POSITIVE (NEGATIVE); PROTEIN, URINE AUTO NEGATIVE (NEGATIVE); RBC, URINE AUTO 12 /HPF (0-3); RENAL EPITHELIAL CELLS 1 /HPF; SPECIFIC GRAVITY URINE AUTO 1.013 (1.002-1.035); SQUAMOUS EPITHELIAL CELL UR AU 11 /HPF (0-6); UROBILINOGEN, URINE AUTO 0.2 mg/dL (0.0-2.0); WBC, URINE AUTO TNTC /HPF (0-3)
== END ==
LOC: SKLAB3 13:36
PROVIDERS: ATTEND Internal Medicine
DX: N19 Unspecified kidney failure (principal); N39.0 Urinary tract infection, site not specified

== ENCOUNTER → 2020-09-21 | Outpatient (REF) | payer MEDICARE | LOC: SKLAB3 07:00 | PROVIDERS: ATTEND Internal Medicine | DX: Z20.822 Contact with and (suspected) exposure to COVID-19 (principal) ==

== ENCOUNTER → 2020-09-22 | Outpatient (REF) | payer MEDICARE ==
[2020-09-22 08:21] LABS: HEMOGLOBIN 11.7 g/dl (12.0-15.5); MEAN CORPUSCULAR HEMOGLOBIN 29.9 pg (27.0-33.0); MEAN CORPUSCULAR HGB CONC 30.8 g/dl (32.0-36.5); MEAN CORPUSCULAR VOLUME 97.2 fl (80.0-96.0); PLATELET COUNT, AUTOMATED 200 10^3/uL (150-450); RED BLOOD COUNT 3.91 10^6/uL (4.00-5.40); WHITE BLOOD COUNT 8.8 10^3/uL (4.0-10.0)
[2020-09-22 08:58] LABS: BLOOD UREA NITROGEN 15 MG/DL (7-18); CALCIUM LEVEL 8.7 MG/DL (8.8-10.2); CARBON DIOXIDE LEVEL 30 MEQ/L (21-32); CHLORIDE LEVEL 103 MEQ/L (98-107); CREATININE FOR GFR 0.79 MG/DL (0.55-1.30); GLOMERULAR FILTRATION RATE > 60.0 (>32); GLUCOSE, FASTING 95 MG/DL (70-100); POTASSIUM SERUM 3.7 MEQ/L (3.5-5.1); SODIUM LEVEL 138 MEQ/L (136-145)
== END ==
LOC: SKLAB3 06:00
PROVIDERS: ATTEND Nurse Practitioner Adult Health
DX: F03.90 Unspecified dementia, unspecified severity, without behavioral disturbance, psychotic disturbance, mood disturbance, and anxiety (principal)

== ENCOUNTER → 2020-10-05 | Outpatient (REF) | payer MEDICARE | LOC: SKLAB3 14:27 | PROVIDERS: ATTEND Internal Medicine | DX: Z20.822 Contact with and (suspected) exposure to COVID-19 (principal) ==

== ENCOUNTER → 2020-10-12 | Outpatient (REF) | payer MEDICARE | LOC: SKLAB3 15:07 | PROVIDERS: ATTEND Internal Medicine | DX: Z20.822 Contact with and (suspected) exposure to COVID-19 (principal) ==

== ENCOUNTER → 2020-10-28 | Outpatient (REF) | payer MEDICARE | LOC: SKLAB3 08:51 | PROVIDERS: ATTEND Internal Medicine | DX: Z20.822 Contact with and (suspected) exposure to COVID-19 (principal) ==

== ENCOUNTER → 2020-12-14 | Outpatient (REF) | payer MEDICARE ==
[2020-12-14 13:27] LABS: HEMATOCRIT 34.9 % (36.0-47.0); HEMOGLOBIN 10.9 g/dl (12.0-15.5); MEAN CORPUSCULAR HEMOGLOBIN 30.7 pg (27.0-33.0); MEAN CORPUSCULAR HGB CONC 31.2 g/dl (32.0-36.5); MEAN CORPUSCULAR VOLUME 98.3 fl (80.0-96.0); PLATELET COUNT, AUTOMATED 208 10^3/uL (150-450); RED BLOOD COUNT 3.55 10^6/uL (4.00-5.40); WHITE BLOOD COUNT 7.5 10^3/uL (4.0-10.0)
[2020-12-14 14:03] LABS: BLOOD UREA NITROGEN 17 MG/DL (7-18); CALCIUM LEVEL 8.7 MG/DL (8.8-10.2); CARBON DIOXIDE LEVEL 30 MEQ/L (21-32); CHLORIDE LEVEL 104 MEQ/L (98-107); CREATININE FOR GFR 0.66 MG/DL (0.55-1.30); GLOMERULAR FILTRATION RATE > 60.0 (>32); GLUCOSE, FASTING 94 MG/DL (70-100); NT-PRO BNP 709 PG/ML (<450); POTASSIUM SERUM 4.2 MEQ/L (3.5-5.1); SODIUM LEVEL 137 MEQ/L (136-145)
== END ==
LOC: SKLAB3 11:02
PROVIDERS: ATTEND Internal Medicine
DX: R60.0 Localized edema (principal); I50.89 Other heart failure

== ENCOUNTER → 2020-12-19 | Outpatient (REF) | payer MEDICARE ==
[2020-12-19 14:03] LABS: BLOOD UREA NITROGEN 16 MG/DL (7-18); CALCIUM LEVEL 8.5 MG/DL (8.8-10.2); CARBON DIOXIDE LEVEL 29 MEQ/L (21-32); CHLORIDE LEVEL 101 MEQ/L (98-107); CREATININE FOR GFR 0.75 MG/DL (0.55-1.30); GLOMERULAR FILTRATION RATE > 60.0 (>32); GLUCOSE, FASTING 130 MG/DL (70-100); POTASSIUM SERUM 4.6 MEQ/L (3.5-5.1); SODIUM LEVEL 137 MEQ/L (136-145)
== END ==
LOC: SKLAB3 07:00
PROVIDERS: ATTEND Internal Medicine
DX: R60.9 Edema, unspecified (principal)

== ENCOUNTER → 2021-03-07 | Outpatient (REF) | payer MEDICARE ==
[2021-03-07 08:40] LABS: BASO % 0.4 % (0.0-1.0); EOS # 0.1 10^3/uL (0.0-0.5); EOS % 2.9 % (0.0-3.0); HEMOGLOBIN 12.3 g/dl (12.0-15.5); LYMPH # 1.8 10^3/uL (1.5-5.0); LYMPH % 36.7 % (24.0-44.0); MEAN CORPUSCULAR HEMOGLOBIN 30.2 pg (27.0-33.0); MEAN CORPUSCULAR HGB CONC 31.5 g/dl (32.0-36.5); MEAN CORPUSCULAR VOLUME 95.8 fl (80.0-96.0); MONO # 0.6 10^3/uL (0.0-0.8); MONO % 11.4 % (2.0-8.0); NEUTROPHILS # 2.4 10^3/uL (1.5-8.5); PLATELET COUNT, AUTOMATED 226 10^3/uL (150-450); RED BLOOD COUNT 4.07 10^6/uL (4.00-5.40); WHITE BLOOD COUNT 4.9 10^3/uL (4.0-10.0)
[2021-03-07 09:06] LABS: ALBUMIN 3.5 GM/DL (3.2-5.2); BLOOD UREA NITROGEN 21 MG/DL (7-18); CALCIUM LEVEL 9.1 MG/DL (8.8-10.2); CARBON DIOXIDE LEVEL 29 MEQ/L (21-32); CHLORIDE LEVEL 106 MEQ/L (98-107); CREATININE FOR GFR 0.88 MG/DL (0.55-1.30); GLOMERULAR FILTRATION RATE > 60.0 (>32); GLUCOSE, FASTING 90 MG/DL (70-100); PHOSPHORUS LEVEL 3.8 MG/DL (2.5-4.9); POTASSIUM SERUM 3.9 MEQ/L (3.5-5.1); SODIUM LEVEL 142 MEQ/L (136-145)
== END ==
LOC: SKLAB3 07:00
PROVIDERS: ATTEND Internal Medicine
DX: N18.9 Chronic kidney disease, unspecified (principal)

== ENCOUNTER → 2021-03-14 | Outpatient (REF) | payer MEDICARE ==
[2021-03-14 10:31] LABS: HEMATOCRIT 40.4 % (36.0-47.0); HEMOGLOBIN 12.7 g/dl (12.0-15.5); MEAN CORPUSCULAR HEMOGLOBIN 30.3 pg (27.0-33.0); MEAN CORPUSCULAR HGB CONC 31.4 g/dl (32.0-36.5); MEAN CORPUSCULAR VOLUME 96.4 fl (80.0-96.0); PLATELET COUNT, AUTOMATED 213 10^3/uL (150-450); RED BLOOD COUNT 4.19 10^6/uL (4.00-5.40); WHITE BLOOD COUNT 5.2 10^3/uL (4.0-10.0)
[2021-03-14 10:51] LABS: HEMOGLOBIN A1c 6.2 %
[2021-03-14 11:01] LABS: ALBUMIN 3.5 GM/DL (3.2-5.2); ALT/SGPT 37 U/L (12-78); BILIRUBIN,TOTAL 0.5 MG/DL (0.2-1.0); BLOOD UREA NITROGEN 17 MG/DL (7-18); CALCIUM LEVEL 9.3 MG/DL (8.8-10.2); CARBON DIOXIDE LEVEL 31 MEQ/L (21-32); CHLORIDE LEVEL 104 MEQ/L (98-107); CREATININE FOR GFR 0.89 MG/DL (0.55-1.30); GLOMERULAR FILTRATION RATE > 60.0 (>32); GLUCOSE, FASTING 149 MG/DL (70-100); POTASSIUM SERUM 4.3 MEQ/L (3.5-5.1); SODIUM LEVEL 139 MEQ/L (136-145); TOTAL PROTEIN 6.7 GM/DL (6.4-8.2); VALPROIC ACID (DEPAKOTE) 49.9 UG/ML (50.0-100.0)
[2021-03-14 11:12] LABS: VITAMIN B12 LEVEL 1283 PG/ML (247-911)
== END ==
LOC: SKLAB3 07:00
PROVIDERS: ATTEND Internal Medicine
DX: F03.90 Unspecified dementia, unspecified severity, without behavioral disturbance, psychotic disturbance, mood disturbance, and anxiety (principal); E03.9 Hypothyroidism, unspecified; E11.9 Type 2 diabetes mellitus without complications; E53.8 Deficiency of other specified B group vitamins

== ENCOUNTER → 2021-04-21 | Outpatient (REF) | payer MEDICARE ==
[2021-04-21 12:54] LABS: HEMATOCRIT 33.6 % (36.0-47.0); HEMOGLOBIN 10.9 g/dl (12.0-15.5); MEAN CORPUSCULAR HEMOGLOBIN 30.7 pg (27.0-33.0); MEAN CORPUSCULAR HGB CONC 32.4 g/dl (32.0-36.5); MEAN CORPUSCULAR VOLUME 94.6 fl (80.0-96.0); PLATELET COUNT, AUTOMATED 195 10^3/uL (150-450); RED BLOOD COUNT 3.55 10^6/uL (4.00-5.40); WHITE BLOOD COUNT 6.3 10^3/uL (4.0-10.0)
[2021-04-21 13:15] LABS: BLOOD UREA NITROGEN 20 MG/DL (7-18); CARBON DIOXIDE LEVEL 29 MEQ/L (21-32); CHLORIDE LEVEL 103 MEQ/L (98-107); CREATININE FOR GFR 0.91 MG/DL (0.55-1.30); GLOMERULAR FILTRATION RATE > 60.0 (>32); GLUCOSE, FASTING 98 MG/DL (70-100); POTASSIUM SERUM 3.5 MEQ/L (3.5-5.1); SODIUM LEVEL 138 MEQ/L (136-145)
[2021-04-21 15:04] LABS: CLOSTRIDIUM DIFFICILE PCR NEGATIVE (NEGATIVE)
== END ==
LOC: SKLAB3 11:31
PROVIDERS: ATTEND Internal Medicine
DX: R41.82 Altered mental status, unspecified (principal)

== ENCOUNTER → 2021-05-18 | Outpatient (REF) | payer MEDICARE | LOC: SKLAB3 08:58 | PROVIDERS: ATTEND Internal Medicine | DX: Z20.822 Contact with and (suspected) exposure to COVID-19 (principal) ==

== ENCOUNTER → 2021-05-22 | Outpatient (REF) | payer MEDICARE | LOC: SKLAB3 07:04 | PROVIDERS: ATTEND Internal Medicine | DX: Z20.822 Contact with and (suspected) exposure to COVID-19 (principal) ==

== ENCOUNTER → 2021-05-25 | Outpatient (REF) | payer MEDICARE | LOC: SKLAB3 06:26 | PROVIDERS: ATTEND Internal Medicine | DX: Z20.822 Contact with and (suspected) exposure to COVID-19 (principal) ==

== ENCOUNTER → 2021-05-29 | Outpatient (REF) | payer MEDICARE | LOC: SKLAB3 06:19 | PROVIDERS: ATTEND Internal Medicine | DX: Z20.822 Contact with and (suspected) exposure to COVID-19 (principal) ==

== ENCOUNTER → 2021-06-01 | Outpatient (REF) | payer MEDICARE | LOC: SKLAB3 11:20 | PROVIDERS: ATTEND Internal Medicine | DX: Z20.822 Contact with and (suspected) exposure to COVID-19 (principal) ==

== ENCOUNTER → 2021-06-02 | Outpatient (REF) | payer MEDICARE ==
[2021-06-02 11:39] LABS: HEMATOCRIT 30.5 % (36.0-47.0); HEMOGLOBIN 9.7 g/dl (12.0-15.5); MEAN CORPUSCULAR HEMOGLOBIN 31.1 pg (27.0-33.0); MEAN CORPUSCULAR HGB CONC 31.8 g/dl (32.0-36.5); MEAN CORPUSCULAR VOLUME 97.8 fl (80.0-96.0); PLATELET COUNT, AUTOMATED 203 10^3/uL (150-450); RED BLOOD COUNT 3.12 10^6/uL (4.00-5.40); WHITE BLOOD COUNT 4.6 10^3/uL (4.0-10.0)
[2021-06-02 12:48] LABS: ALBUMIN 2.9 GM/DL (3.2-5.2); BILIRUBIN,TOTAL 0.3 MG/DL (0.2-1.0); CALCIUM LEVEL 9.1 MG/DL (8.8-10.2); CREATININE FOR GFR 0.97 MG/DL (0.55-1.30); GLOMERULAR FILTRATION RATE 58.4 (>32); POTASSIUM SERUM 3.6 MEQ/L (3.5-5.1); TOTAL PROTEIN 6.3 GM/DL (6.4-8.2)
== END ==
LOC: SKLAB3 06:00
PROVIDERS: ATTEND Nurse Practitioner
DX: U07.1 COVID-19 (principal); Z79.899 Other long term (current) drug therapy

== ENCOUNTER → 2021-06-05 | Outpatient (REF) | payer MEDICARE, MEDICAID ==
[2021-06-05 13:30] LABS: HEMOGLOBIN 11.1 g/dl (12.0-15.5); MEAN CORPUSCULAR HEMOGLOBIN 30.4 pg (27.0-33.0); MEAN CORPUSCULAR HGB CONC 30.8 g/dl (32.0-36.5); MEAN CORPUSCULAR VOLUME 98.6 fl (80.0-96.0); PLATELET COUNT, AUTOMATED 221 10^3/uL (150-450); RED BLOOD COUNT 3.65 10^6/uL (4.00-5.40); WHITE BLOOD COUNT 5.4 10^3/uL (4.0-10.0)
[2021-06-05 13:56] LABS: ALBUMIN 3.6 GM/DL (3.2-5.2); BILIRUBIN,TOTAL 0.5 MG/DL (0.2-1.0); CALCIUM LEVEL 9.4 MG/DL (8.8-10.2); CREATININE FOR GFR 1.01 MG/DL (0.55-1.30); GLOMERULAR FILTRATION RATE 55.7 (>32); POTASSIUM SERUM 4.1 MEQ/L (3.5-5.1); TOTAL PROTEIN 7.1 GM/DL (6.4-8.2)
== END ==
LOC: SKLAB3 08:00
PROVIDERS: ATTEND Internal Medicine
DX: U07.1 COVID-19 (principal); Z79.899 Other long term (current) drug therapy

== ENCOUNTER → 2021-09-12 | Outpatient (REF) | payer MEDICARE, MEDICAID ==
[2021-09-12 14:56] LABS: THYROID STIMULATING HORMONE 2.86 uIU/ML (0.358-3.740)
[2021-09-12 15:09] LABS: HEMOGLOBIN A1c 6.1 %
== END ==
LOC: SKLAB3 11:23
PROVIDERS: ATTEND Internal Medicine
DX: F03.90 Unspecified dementia, unspecified severity, without behavioral disturbance, psychotic disturbance, mood disturbance, and anxiety (principal); E03.9 Hypothyroidism, unspecified; E11.9 Type 2 diabetes mellitus without complications

== ENCOUNTER 2021-11-01 03:18 | Emergency (ER) | payer MEDICARE, MEDICAID ==
[2021-11-01] MEDS ORDERED: NITROFURANTOIN (MACROBID) 100 MG CAP PO ONE (06:50)
[2021-11-01] MEDS ORDERED: FOSFOMYCIN TROMETHAMINE 3 GM POWDER PACKET (MONUROL) PO ONE (07:00)
[2021-11-01 08:07] VITALS: BP 172/71
== END 2021-11-01 08:12 | disposition home or self-care (01) ==
LOC: M ED 03:18
DX: M25.512 Pain in left shoulder (principal); R93.7 Abnormal findings on diagnostic imaging of other parts of musculoskeletal system; R29.6 Repeated falls; N39.0 Urinary tract infection, site not specified; I10 Essential (primary) hypertension; E03.9 Hypothyroidism, unspecified; E78.5 Hyperlipidemia, unspecified; Z79.899 Other long term (current) drug therapy

== ENCOUNTER → 2021-11-01 | Outpatient (REF) | payer MEDICARE, MEDICAID ==
[2021-11-01 10:29] LABS: HEMATOCRIT 32.8 % (36.0-47.0); HEMOGLOBIN 11.1 g/dl (12.0-15.5); MEAN CORPUSCULAR HEMOGLOBIN 31.4 pg (27.0-33.0); MEAN CORPUSCULAR HGB CONC 33.8 g/dl (32.0-36.5); MEAN CORPUSCULAR VOLUME 92.9 fl (80.0-96.0); PLATELET COUNT, AUTOMATED 229 10^3/uL (150-450); RED BLOOD COUNT 3.53 10^6/uL (4.00-5.40); WHITE BLOOD COUNT 7.8 10^3/uL (4.0-10.0)
[2021-11-01 10:48] LABS: BLOOD UREA NITROGEN 13 MG/DL (7-18); CALCIUM LEVEL 8.8 MG/DL (8.8-10.2); CARBON DIOXIDE LEVEL 28 MEQ/L (21-32); CHLORIDE LEVEL 96 MEQ/L (98-107); CREATININE FOR GFR 0.78 MG/DL (0.55-1.30); GLOMERULAR FILTRATION RATE > 60.0 (>32); GLUCOSE, FASTING 115 MG/DL (70-100); POTASSIUM SERUM 3.1 MEQ/L (3.5-5.1); SODIUM LEVEL 131 MEQ/L (136-145)
== END ==
LOC: SKLAB3 09:45
PROVIDERS: ATTEND Internal Medicine
DX: R29.6 Repeated falls (principal); I95.9 Hypotension, unspecified

== ENCOUNTER → 2021-11-13 | Outpatient (REF) | payer MEDICARE, MEDICAID ==
[~2021-11-13] MED LIST changes: +ACET-907 PO; +ASPI-161 PO; +ATOR40TA75 PO; +BISA10SU PR; +CEFD300C41 PO; +CLOP75TA2 PO; +DEPA1TAB PO; +DONE10TA90 PO; +FAMO1TAB11 PO; +FLEEENE12 PR; +FLOM0.4C39 PO; +GNPSOL OU; +MILKSUS3 PO; +PREPOI TOP; +SERT50TA29 PO
[2021-11-13 11:58] LABS: BLOOD UREA NITROGEN 15 MG/DL (7-18); CALCIUM LEVEL 8.4 MG/DL (8.8-10.2); CARBON DIOXIDE LEVEL 26 MEQ/L (21-32); CHLORIDE LEVEL 101 MEQ/L (98-107); CREATININE FOR GFR 0.67 MG/DL (0.55-1.30); GLOMERULAR FILTRATION RATE > 60.0 (>32); GLUCOSE, FASTING 127 MG/DL (70-100); POTASSIUM SERUM 3.9 MEQ/L (3.5-5.1); SODIUM LEVEL 132 MEQ/L (136-145)
== END ==
LOC: SKLAB3 07:00
PROVIDERS: ATTEND Internal Medicine
DX: E87.1 Hypo-osmolality and hyponatremia (principal)

== ENCOUNTER → 2021-11-22 | Outpatient (CLI) | payer MEDICARE, MEDICAID ==
[~2021-11-22] MED LIST changes: +ISOVUE-370 76% 100ML VIAL As Ordered ONE
== END ==
LOC: M RAD 11:05
PROVIDERS: ATTEND Nurse Practitioner
DX: N18.9 Chronic kidney disease, unspecified (principal); R33.9 Retention of urine, unspecified
CPT/HCPCS: 74177; Q9967

== ENCOUNTER 2021-11-29 15:03 | Inpatient (IN) | payer MEDICARE, MEDICAID ==
[~2021-11-29] VITALS: Ht 167.6 cm; Wt 45.9 kg
[~2021-11-29 15:03] MED LIST changes: -ISOVUE-370 76% 100ML VIAL As Ordered ONE; +PREPOI PR; -PREPOI TOP
[2021-11-29] MEDS ORDERED: LIDOCAINE 1% MDV 20ML VIAL SC ONE (15:15)
[2021-11-29] MEDS ORDERED: LIDOCAINE W/EPINEPHRINE 1% 20ML VIAL SC ONE (15:40)
[2021-11-29] MEDS ORDERED: LIDOCAINE W/EPINEPHRINE 1% 20ML VIAL As Ordered ONE (15:40)
[2021-11-29] MEDS: MORPHINE 2 MG/ML 1ML VIAL IV PRN ×3 (15:45→23:38)
[2021-11-29 16:18] LABS: BASO % 0.3 % (0.0-1.0); EOS # 0.1 10^3/uL (0.0-0.5); EOS % 0.7 % (0.0-3.0); HEMATOCRIT 27.1 % (36.0-47.0); HEMOGLOBIN 8.8 g/dl (12.0-15.5); LYMPH # 1.4 10^3/uL (1.5-5.0); LYMPH % 20.7 % (24.0-44.0); MEAN CORPUSCULAR HEMOGLOBIN 31.8 pg (27.0-33.0); MEAN CORPUSCULAR HGB CONC 32.5 g/dl (32.0-36.5); MEAN CORPUSCULAR VOLUME 97.8 fl (80.0-96.0); MONO # 0.6 10^3/uL (0.0-0.8); MONO % 9.5 % (2.0-8.0); NEUTROPHILS # 4.6 10^3/uL (1.5-8.5); NEUTROPHILS % 68.4 % (36.0-66.0); PLATELET COUNT, AUTOMATED 251 10^3/uL (150-450); RED BLOOD COUNT 2.77 10^6/uL (4.00-5.40); WHITE BLOOD COUNT 6.8 10^3/uL (4.0-10.0)
[2021-11-29 16:30] LABS: INR 0.96; PROTHROMBIN TIME 13.2 SECONDS (12.7-14.5)
[2021-11-29 16:31] LABS: PARTIAL THROMBOPLASTIN TIME 32.2 SECONDS (25.9-37.0)
[2021-11-29 16:51] LABS: CK-MB VALUE MASS 4.7 NG/ML (<3.6); MB/CK RELATIVE INDEX 2.67 (< OR =4)
[2021-11-29 16:58] LABS: BLOOD UREA NITROGEN 15 MG/DL (7-18); CALCIUM LEVEL 9.3 MG/DL (8.8-10.2); CARBON DIOXIDE LEVEL 28 MEQ/L (21-32); CHLORIDE LEVEL 97 MEQ/L (98-107); CREATININE FOR GFR 0.59 MG/DL (0.55-1.30); FREE T4 0.82 NG/DL (0.76-1.46); GLOMERULAR FILTRATION RATE > 60.0 (>32); GLUCOSE, FASTING 99 MG/DL (70-100); POTASSIUM SERUM 4.1 MEQ/L (3.5-5.1); SODIUM LEVEL 131 MEQ/L (136-145)
[2021-11-29] MEDS ORDERED: HALOPERIDOL 5MG/ML VIAL (J1630 PER 1) IV ONE (17:35)
[2021-11-29] MEDS ORDERED: HALOPERIDOL 5MG/ML VIAL (J1630 PER 1) As Ordered ONE (17:37)
[2021-11-29 18:22] LABS: RSV AMPLIFICATION NEGATIVE (NEGATIVE)
[2021-11-29] MEDS ORDERED: fentaNYL 100 MCG/2 ML INJECTION IV ONE (18:35)
[2021-11-29] MEDS ORDERED: FURO20TA2 PO (19:18)
[2021-11-29] MEDS ORDERED: CLOP75TA2 PO (19:18)
[2021-11-29] MEDS ORDERED: BACIOIN5 TOP (19:18)
[2021-11-29] MEDS ORDERED: HOME MED LIST COMPLETE! XX SCH (19:25)
[2021-11-29] MEDS ORDERED: PREPARATION H OINTMENT (HEMORRHOID) PR PRN (19:25)
[2021-11-29] MEDS ORDERED: BISACODYL 10 MG SUPP PR PRN (19:25)
[2021-11-29] MEDS ORDERED: GLUCAGON INJ 1MG VIAL SC PRN (19:25)
[2021-11-29] MEDS ORDERED: DEXTROSE 50% 50 ML SYRINGE IV PRN (19:25)
[2021-11-29] MEDS ORDERED: GLUCOSE 4GM CHEW TABLET PO PRN (19:25)
[2021-11-29] MEDS ORDERED: ONDANSETRON 4MG/2ML VIAL IV PRN (19:25)
[2021-11-29] MEDS ORDERED: LABETALOL 100MG/20ML VIAL IV ONE (20:20)
[2021-11-29 20:51] LABS: BLOOD UREA NITROGEN 12 MG/DL (7-18); CALCIUM LEVEL 9.4 MG/DL (8.8-10.2); CARBON DIOXIDE LEVEL 28 MEQ/L (21-32); CHLORIDE LEVEL 101 MEQ/L (98-107); CREATININE FOR GFR 0.61 MG/DL (0.55-1.30); FERRITIN 62 NG/ML (8-252); GLOMERULAR FILTRATION RATE > 60.0 (>32); GLUCOSE, FASTING 125 MG/DL (70-100); IRON (FE) 43 UG/DL (50-170); MAGNESIUM LEVEL 2.1 MG/DL (1.8-2.4); NT-PRO BNP 952 PG/ML (<450); PERCENT SATURATION 12.7 % (13.2-45.0); POTASSIUM SERUM 3.6 MEQ/L (3.5-5.1); SODIUM LEVEL 137 MEQ/L (136-145); TOTAL IRON BINDING CAPACITY 339 UG/DL (250-450)
[2021-11-29 22:01] LABS: VITAMIN B12 LEVEL 183 PG/ML (247-911)
[2021-11-29] MEDS: **hydrALAZINE** 10 MG TAB PO PRN (23:01)
[2021-11-29 23:03] LABS: HEMOGLOBIN A1c 5.5 %
[2021-11-29 23:12] LABS: ALBUMIN 3.2 GM/DL (3.2-5.2); ALT/SGPT 39 U/L (12-78); BILIRUBIN,TOTAL 0.5 MG/DL (0.2-1.0); BLOOD UREA NITROGEN 12 MG/DL (7-18); CALCIUM LEVEL 9.1 MG/DL (8.8-10.2); CARBON DIOXIDE LEVEL 29 MEQ/L (21-32); CHLORIDE LEVEL 101 MEQ/L (98-107); CREATININE FOR GFR 0.62 MG/DL (0.55-1.30); GLOMERULAR FILTRATION RATE > 60.0 (>32); GLUCOSE, FASTING 117 MG/DL (70-100); POTASSIUM SERUM 3.5 MEQ/L (3.5-5.1); SODIUM LEVEL 137 MEQ/L (136-145); TOTAL PROTEIN 6.4 GM/DL (6.4-8.2)
[2021-11-29 23:20] VITALS: BP 190/90
[2021-11-29] MEDS: HumaLOG INSULIN (NovoLOG) PER UNIT SC SCH (23:40)
[2021-11-29] MEDS ORDERED: D5W/0.9% SODIUM CHLORIDE 1,000 ML IV SCH (23:50)
[2021-11-30] VITALS (15 sets, daily range): BP systolic 110–200; BP diastolic 54–84
[2021-11-30] MEDS ORDERED: NS 1,000 ML IV SCH (00:05)
[2021-11-30] MEDS: amLODIPine 5 MG TAB PO SCH (00:15)
[2021-11-30] MEDS: ATORVASTATIN 20 MG TAB PO SCH ×2 (00:32→21:06)
[2021-11-30] MEDS: DONEPEZIL 5 MG TAB PO SCH ×2 (00:33→21:06)
[2021-11-30] MEDS ORDERED: MORPHINE 2 MG/ML 1ML VIAL IV ONE (01:00)
[2021-11-30] MEDS ORDERED: amLODIPine 5 MG TAB PO ONE (01:00)
[2021-11-30] MEDS ORDERED: D5W/0.9% SODIUM CHLORIDE 1,000 ML IV SCH (01:00)
[2021-11-30] MEDS: HumaLOG INSULIN (NovoLOG) PER UNIT SC SCH ×4 (01:14→17:54)
[2021-11-30] MEDS ORDERED: PILL CUTTER 1 EACH XX PRN (01:15)
[2021-11-30] MEDS: POLYVINYL ALCOHOL OPHTH SOLN 15 ML(LIQUITEARS) OU SCH ×3 (01:52→21:07)
[2021-11-30] MEDS: DIVALPROEX 125 MG TAB PO SCH ×3 (01:53→21:06)
[2021-11-30] MEDS ORDERED: LABETALOL 100MG/20ML VIAL IV ONE (02:00)
[2021-11-30 04:10] LABS: BLOOD UREA NITROGEN 11 MG/DL (7-18); CALCIUM LEVEL 8.6 MG/DL (8.8-10.2); CARBON DIOXIDE LEVEL 28 MEQ/L (21-32); CHLORIDE LEVEL 100 MEQ/L (98-107); CREATININE FOR GFR 0.56 MG/DL (0.55-1.30); GLOMERULAR FILTRATION RATE > 60.0 (>32); GLUCOSE, FASTING 102 MG/DL (70-100); POTASSIUM SERUM 3.5 MEQ/L (3.5-5.1); SODIUM LEVEL 135 MEQ/L (136-145)
[2021-11-30 05:41] LABS: BASO % 0.2 % (0.0-1.0); EOS # 0.1 10^3/uL (0.0-0.5); EOS % 0.9 % (0.0-3.0); HEMATOCRIT 26.9 % (36.0-47.0); HEMOGLOBIN 8.6 g/dl (12.0-15.5); LYMPH # 0.7 10^3/uL (1.5-5.0); LYMPH % 7.7 % (24.0-44.0); MEAN CORPUSCULAR HEMOGLOBIN 30.6 pg (27.0-33.0); MEAN CORPUSCULAR VOLUME 95.7 fl (80.0-96.0); MONO # 0.5 10^3/uL (0.0-0.8); NEUTROPHILS # 7.1 10^3/uL (1.5-8.5); NEUTROPHILS % 84.8 % (36.0-66.0); PLATELET COUNT, AUTOMATED 247 10^3/uL (150-450); RED BLOOD COUNT 2.81 10^6/uL (4.00-5.40); WHITE BLOOD COUNT 8.4 10^3/uL (4.0-10.0)
[2021-11-30 06:02] LABS: BLOOD UREA NITROGEN 12 MG/DL (7-18); CALCIUM LEVEL 8.6 MG/DL (8.8-10.2); CARBON DIOXIDE LEVEL 27 MEQ/L (21-32); CHLORIDE LEVEL 100 MEQ/L (98-107); CREATININE FOR GFR 0.51 MG/DL (0.55-1.30); GLOMERULAR FILTRATION RATE > 60.0 (>32); GLUCOSE, FASTING 116 MG/DL (70-100); POTASSIUM SERUM 3.8 MEQ/L (3.5-5.1); SODIUM LEVEL 135 MEQ/L (136-145)
[2021-11-30] MEDS: LEVOTHYROXINE 50MCG TABLET (0.05MG) PO SCH (06:30)
[2021-11-30] MEDS: FUROSEMIDE 20 MG TAB PO SCH (08:57)
[2021-11-30] MEDS: SERTRALINE HCL 50 MG TAB PO SCH (08:57)
[2021-11-30] MEDS: FAMOTIDINE 20 MG TAB PO SCH (08:57)
[2021-11-30] MEDS: IRBESARTAN 150MG TAB PO SCH (08:58)
[2021-11-30] MEDS: MORPHINE 2 MG/ML 1ML VIAL IV PRN (09:13)
[2021-11-30] MEDS ORDERED: fentaNYL 100 MCG/2 ML INJECTION As Ordered ONE (12:18)
[2021-11-30] MEDS ORDERED: LIDOCAINE 2% 100MG/5ML SDV (FOR ANES.) As Ordered ONE (12:19)
[2021-11-30] MEDS ORDERED: propofoL 200 MG/20 ML VIAL As Ordered ONE (12:19)
[2021-11-30] MEDS ORDERED: ROCURONIUM BROMIDE 50 MG/5 ML VIAL As Ordered ONE (12:44)
[2021-11-30] MEDS ORDERED: ceFAZolin 2 GM/D5W 50 ML IV BAG (J0690 PER 500MG) As Ordered ONE (13:14)
[2021-11-30] MEDS ORDERED: BUPIVACAINE LIPOSOME/PF 1.3% 20ML VIAL (13.3MG/ML)(EXPAREL) As Ordered ONE (13:16)
[2021-11-30] MEDS ORDERED: BUPIVACAINE/EPIN 0.5% 30 ML VIAL As Ordered ONE (13:37)
[2021-11-30] MEDS ORDERED: PHENYLEPHRINE 10MG/ML 1ML VIAL (J2370 PER 1) As Ordered ONE (13:52)
[2021-11-30] MEDS ORDERED: ACETAMINOPHEN 1000MG 100ML IV BTL (OFIRMEV) (J0131 PER 10MG) As Ordered ONE (14:15)
[2021-11-30] MEDS ORDERED: SUGAMMADEX SODIUM 500 MG/5 ML VIAL (BRIDION) As Ordered ONE (14:36)
[2021-11-30] MEDS ORDERED: LABETALOL 100MG/20ML VIAL IV PRN (15:30)
[2021-11-30] MEDS ORDERED: PROMETHAZINE 25MG/ML 1ML VIAL IV PRN (15:30)
[2021-11-30] MEDS ORDERED: hydrALAZINE 20MG/ML 1ML VIAL (J0360 PER 20MG) IV PRN (15:30)
[2021-11-30] MEDS ORDERED: oxyCODONE 5MG TAB PO PRN (15:30)
[2021-11-30] MEDS ORDERED: HYDROMORPHONE HCL 0.5 MG/ 0.5 ML SYRINGE (J1170 PER 1) IV PRN ×2 (15:30)
[2021-11-30] MEDS ORDERED: MEPERIDINE INJ 25 MG/ML VIAL (J2175) IV PRN (15:30)
[2021-11-30] MEDS ORDERED: ONDANSETRON 4MG/2ML VIAL IV PRN (15:30)
[2021-11-30] MEDS: ceFAZolin SOD 2 GM in IV 1 EA IV SCH (21:07)
[2021-12-01] MEDS: MORPHINE 2 MG/ML 1ML VIAL IV PRN ×2 (00:38→06:56)
[2021-12-01 00:41] VITALS: BP 152/67
[2021-12-01 04:00] VITALS: BP_SYST 162; BP_SYST 180; BP_DIAS 75; BP_DIAS 81
[2021-12-01] MEDS: LEVOTHYROXINE 50MCG TABLET (0.05MG) PO SCH (06:00)
[2021-12-01] MEDS: ceFAZolin SOD 2 GM in IV 1 EA IV SCH (06:01)
[2021-12-01] MEDS: HumaLOG INSULIN (NovoLOG) PER UNIT SC SCH ×4 (06:01→17:40)
[2021-12-01] MEDS: **hydrALAZINE** 10 MG TAB PO PRN (06:02)
[2021-12-01 06:24] LABS: BASO % 0.3 % (0.0-1.0); EOS # 0.2 10^3/uL (0.0-0.5); EOS % 2.3 % (0.0-3.0); HEMATOCRIT 29.2 % (36.0-47.0); HEMOGLOBIN 9.6 g/dl (12.0-15.5); LYMPH # 0.6 10^3/uL (1.5-5.0); LYMPH % 7.6 % (24.0-44.0); MEAN CORPUSCULAR HEMOGLOBIN 31.8 pg (27.0-33.0); MEAN CORPUSCULAR HGB CONC 32.9 g/dl (32.0-36.5); MEAN CORPUSCULAR VOLUME 96.7 fl (80.0-96.0); MONO # 0.7 10^3/uL (0.0-0.8); NEUTROPHILS # 6.3 10^3/uL (1.5-8.5); NEUTROPHILS % 80.4 % (36.0-66.0); PLATELET COUNT, AUTOMATED 244 10^3/uL (150-450); RED BLOOD COUNT 3.02 10^6/uL (4.00-5.40); WHITE BLOOD COUNT 7.8 10^3/uL (4.0-10.0)
[2021-12-01 06:44] LABS: BLOOD UREA NITROGEN 10 MG/DL (7-18); CALCIUM LEVEL 8.9 MG/DL (8.8-10.2); CARBON DIOXIDE LEVEL 26 MEQ/L (21-32); CHLORIDE LEVEL 97 MEQ/L (98-107); CREATININE FOR GFR 0.53 MG/DL (0.55-1.30); GLOMERULAR FILTRATION RATE > 60.0 (>32); GLUCOSE, FASTING 139 MG/DL (70-100); POTASSIUM SERUM 3.6 MEQ/L (3.5-5.1); SODIUM LEVEL 133 MEQ/L (136-145)
[2021-12-01 07:48] VITALS: BP 159/70
[2021-12-01] MEDS: IRBESARTAN 150MG TAB PO SCH (08:09)
[2021-12-01] MEDS: ASPIRIN 81MG ENTERIC TABLET PO SCH (08:10)
[2021-12-01] MEDS: DIVALPROEX 125 MG TAB PO SCH ×2 (08:10→20:25)
[2021-12-01] MEDS: FAMOTIDINE 20 MG TAB PO SCH (08:11)
[2021-12-01] MEDS: amLODIPine 5 MG TAB PO SCH (08:11)
[2021-12-01] MEDS: SERTRALINE HCL 50 MG TAB PO SCH (08:12)
[2021-12-01] MEDS: POLYVINYL ALCOHOL OPHTH SOLN 15 ML(LIQUITEARS) OU SCH ×2 (08:13→20:27)
[2021-12-01] MEDS ORDERED: ENOXAPARIN 40MG/0.4ML SYRINGE (J1650 PER 10MG) SC SCH (09:00)
[2021-12-01] MEDS ORDERED: ENOXAPARIN 30MG/0.3ML SYRINGE (J1650 PER 10MG) SC SCH (09:00)
[2021-12-01] MEDS ORDERED: HEPARIN SOD (PORCINE) 5000UNITS/ML 1ML VIAL/SYRINGE SQ SCH (09:00)
[2021-12-01] MEDS ORDERED: CLOPIDOGREL 75 MG TAB PO SCH (09:00)
[2021-12-01 12:04] VITALS: BP 148/72
[2021-12-01 16:36] VITALS: BP 140/70
[2021-12-01 20:00] VITALS: BP 166/70
[2021-12-01] MEDS: DONEPEZIL 5 MG TAB PO SCH (20:26)
[2021-12-01] MEDS: ATORVASTATIN 20 MG TAB PO SCH (20:26)
[2021-12-02] MEDS: ACETAMINOPHEN TAB 650MG DOSE (2X325MG) PO PRN ×2 (00:13→21:51)
[2021-12-02] MEDS: HumaLOG INSULIN (NovoLOG) PER UNIT SC SCH ×4 (00:13→18:16)
[2021-12-02 05:12] LABS: BASO % 0.4 % (0.0-1.0); EOS # 0.1 10^3/uL (0.0-0.5); EOS % 1.3 % (0.0-3.0); HEMATOCRIT 27.2 % (36.0-47.0); HEMOGLOBIN 8.9 g/dl (12.0-15.5); LYMPH # 1.2 10^3/uL (1.5-5.0); LYMPH % 15.9 % (24.0-44.0); MEAN CORPUSCULAR HEMOGLOBIN 31.6 pg (27.0-33.0); MEAN CORPUSCULAR HGB CONC 32.7 g/dl (32.0-36.5); MEAN CORPUSCULAR VOLUME 96.5 fl (80.0-96.0); MONO # 0.9 10^3/uL (0.0-0.8); MONO % 11.9 % (2.0-8.0); NEUTROPHILS # 5.4 10^3/uL (1.5-8.5); NEUTROPHILS % 70.2 % (36.0-66.0); PLATELET COUNT, AUTOMATED 247 10^3/uL (150-450); RED BLOOD COUNT 2.82 10^6/uL (4.00-5.40); WHITE BLOOD COUNT 7.6 10^3/uL (4.0-10.0)
[2021-12-02 05:32] LABS: BLOOD UREA NITROGEN 14 MG/DL (7-18); CALCIUM LEVEL 8.8 MG/DL (8.8-10.2); CARBON DIOXIDE LEVEL 28 MEQ/L (21-32); CHLORIDE LEVEL 99 MEQ/L (98-107); CREATININE FOR GFR 0.46 MG/DL (0.55-1.30); GLOMERULAR FILTRATION RATE > 60.0 (>32); GLUCOSE, FASTING 109 MG/DL (70-100); POTASSIUM SERUM 3.6 MEQ/L (3.5-5.1); SODIUM LEVEL 134 MEQ/L (136-145)
[2021-12-02 06:00] VITALS: BP 162/72
[2021-12-02] MEDS: LEVOTHYROXINE 50MCG TABLET (0.05MG) PO SCH (06:22)
[2021-12-02 08:00] VITALS: BP 160/42
[2021-12-02] MEDS: SERTRALINE HCL 50 MG TAB PO SCH (08:28)
[2021-12-02] MEDS: DIVALPROEX 125 MG TAB PO SCH ×2 (08:29→20:56)
[2021-12-02] MEDS: ASPIRIN 81MG ENTERIC TABLET PO SCH (08:29)
[2021-12-02] MEDS: FAMOTIDINE 20 MG TAB PO SCH (08:29)
[2021-12-02] MEDS: FUROSEMIDE 20 MG TAB PO SCH (08:29)
[2021-12-02] MEDS: IRBESARTAN 150MG TAB PO SCH (08:29)
[2021-12-02] MEDS: amLODIPine 5 MG TAB PO SCH (08:30)
[2021-12-02] MEDS: POLYVINYL ALCOHOL OPHTH SOLN 15 ML(LIQUITEARS) OU SCH ×2 (08:30→20:57)
[2021-12-02] MEDS: RIVAROXABAN 10 MG TAB (XARELTO) PO SCH (18:15)
[2021-12-02] MEDS: DONEPEZIL 5 MG TAB PO SCH (20:56)
[2021-12-02] MEDS: ATORVASTATIN 20 MG TAB PO SCH (20:56)
[2021-12-03] MEDS: HumaLOG INSULIN (NovoLOG) PER UNIT SC SCH ×4 (00:33→18:00)
[2021-12-03] MEDS: LEVOTHYROXINE 50MCG TABLET (0.05MG) PO SCH (05:41)
[2021-12-03 06:00] VITALS: BP 157/66
[2021-12-03 08:00] VITALS: BP 147/67
[2021-12-03 08:32] LABS: BASO % 0.4 % (0.0-1.0); EOS # 0.3 10^3/uL (0.0-0.5); EOS % 4.5 % (0.0-3.0); HEMATOCRIT 26.6 % (36.0-47.0); HEMOGLOBIN 8.6 g/dl (12.0-15.5); LYMPH # 1.3 10^3/uL (1.5-5.0); LYMPH % 18.9 % (24.0-44.0); MEAN CORPUSCULAR HEMOGLOBIN 31.2 pg (27.0-33.0); MEAN CORPUSCULAR HGB CONC 32.3 g/dl (32.0-36.5); MEAN CORPUSCULAR VOLUME 96.4 fl (80.0-96.0); MONO # 0.8 10^3/uL (0.0-0.8); MONO % 12.4 % (2.0-8.0); NEUTROPHILS # 4.3 10^3/uL (1.5-8.5); NEUTROPHILS % 63.4 % (36.0-66.0); PLATELET COUNT, AUTOMATED 266 10^3/uL (150-450); RED BLOOD COUNT 2.76 10^6/uL (4.00-5.40); WHITE BLOOD COUNT 6.7 10^3/uL (4.0-10.0)
[2021-12-03] MEDS: DIVALPROEX 125 MG TAB PO SCH ×2 (08:46→20:53)
[2021-12-03] MEDS: SERTRALINE HCL 50 MG TAB PO SCH (08:46)
[2021-12-03] MEDS: FAMOTIDINE 20 MG TAB PO SCH (08:46)
[2021-12-03] MEDS: ASPIRIN 81MG ENTERIC TABLET PO SCH (08:46)
[2021-12-03] MEDS: amLODIPine 5 MG TAB PO SCH (08:46)
[2021-12-03] MEDS: IRBESARTAN 150MG TAB PO SCH (08:46)
[2021-12-03] MEDS: POLYVINYL ALCOHOL OPHTH SOLN 15 ML(LIQUITEARS) OU SCH ×2 (08:47→20:54)
[2021-12-03 08:58] LABS: BLOOD UREA NITROGEN 15 MG/DL (7-18); CALCIUM LEVEL 8.7 MG/DL (8.8-10.2); CARBON DIOXIDE LEVEL 28 MEQ/L (21-32); CHLORIDE LEVEL 100 MEQ/L (98-107); CREATININE FOR GFR 0.49 MG/DL (0.55-1.30); GLOMERULAR FILTRATION RATE > 60.0 (>32); GLUCOSE, FASTING 97 MG/DL (70-100); MAGNESIUM LEVEL 2.1 MG/DL (1.8-2.4); POTASSIUM SERUM 3.4 MEQ/L (3.5-5.1); SODIUM LEVEL 135 MEQ/L (136-145)
[2021-12-03] MEDS ORDERED: POTASSIUM CHLORIDE 10MEQ SR TABLET PO ONE (10:00)
[2021-12-03] MEDS ORDERED: MOM 30ML SUSPENSION UDC PO PRN (10:00)
[2021-12-03] MEDS ORDERED: SENOKOT S TAB PO PRN (10:00)
[2021-12-03] MEDS ORDERED: MOM 30ML SUSPENSION UDC PO ONE (10:00)
[2021-12-03] MEDS: RIVAROXABAN 10 MG TAB (XARELTO) PO SCH (18:50)
[2021-12-03] MEDS: DONEPEZIL 5 MG TAB PO SCH (20:53)
[2021-12-03] MEDS: ATORVASTATIN 20 MG TAB PO SCH (20:53)
[2021-12-03] MEDS: ACETAMINOPHEN TAB 650MG DOSE (2X325MG) PO PRN (20:54)
[2021-12-03] MEDS: oxyCODONE 5MG TAB PO PRN (22:35)
[2021-12-04 05:29] LABS: BASO % 0.4 % (0.0-1.0); EOS # 0.3 10^3/uL (0.0-0.5); EOS % 4.7 % (0.0-3.0); HEMOGLOBIN 8.5 g/dl (12.0-15.5); LYMPH # 1.5 10^3/uL (1.5-5.0); LYMPH % 20.7 % (24.0-44.0); MEAN CORPUSCULAR HEMOGLOBIN 30.7 pg (27.0-33.0); MEAN CORPUSCULAR HGB CONC 31.5 g/dl (32.0-36.5); MEAN CORPUSCULAR VOLUME 97.5 fl (80.0-96.0); MONO # 0.9 10^3/uL (0.0-0.8); MONO % 12.1 % (2.0-8.0); NEUTROPHILS # 4.4 10^3/uL (1.5-8.5); NEUTROPHILS % 61.8 % (36.0-66.0); PLATELET COUNT, AUTOMATED 272 10^3/uL (150-450); RED BLOOD COUNT 2.77 10^6/uL (4.00-5.40); WHITE BLOOD COUNT 7.1 10^3/uL (4.0-10.0)
[2021-12-04 05:48] LABS: BLOOD UREA NITROGEN 12 MG/DL (7-18); CALCIUM LEVEL 8.5 MG/DL (8.8-10.2); CARBON DIOXIDE LEVEL 26 MEQ/L (21-32); CHLORIDE LEVEL 101 MEQ/L (98-107); CREATININE FOR GFR 0.59 MG/DL (0.55-1.30); GLOMERULAR FILTRATION RATE > 60.0 (>32); GLUCOSE, FASTING 99 MG/DL (70-100); MAGNESIUM LEVEL 2.2 MG/DL (1.8-2.4); POTASSIUM SERUM 4.5 MEQ/L (3.5-5.1); SODIUM LEVEL 133 MEQ/L (136-145)
[2021-12-04] MEDS: HumaLOG INSULIN (NovoLOG) PER UNIT SC SCH ×2 (05:57)
[2021-12-04] MEDS: LEVOTHYROXINE 50MCG TABLET (0.05MG) PO SCH (06:18)
[2021-12-04 06:20] VITALS: BP 157/67
[2021-12-04 08:15] VITALS: BP 150/68
[2021-12-04] MEDS: SERTRALINE HCL 50 MG TAB PO SCH (09:03)
[2021-12-04] MEDS: ASPIRIN 81MG ENTERIC TABLET PO SCH (09:03)
[2021-12-04] MEDS: IRBESARTAN 150MG TAB PO SCH (09:03)
[2021-12-04] MEDS: DIVALPROEX 125 MG TAB PO SCH (09:03)
[2021-12-04] MEDS: FAMOTIDINE 20 MG TAB PO SCH (09:03)
[2021-12-04 09:04] VITALS: BP 150/68
[2021-12-04] MEDS: POLYVINYL ALCOHOL OPHTH SOLN 15 ML(LIQUITEARS) OU SCH (09:04)
[2021-12-04] MEDS: FUROSEMIDE 20 MG TAB PO SCH (09:04)
[2021-12-04] MEDS: amLODIPine 5 MG TAB PO SCH (09:04)
[2021-12-04] MEDS: oxyCODONE 5MG TAB PO PRN (09:10)
[2021-12-04] MEDS ORDERED: XARE10TA PO (09:26)
[2021-12-04] MEDS ORDERED: AMLO1TAB24 PO (09:26)
[2021-12-04] MEDS ORDERED: AVAP150T31 PO (09:26)
[2021-12-04] MEDS ORDERED: OXYC-517 PO (09:26)
== END 2021-12-04 11:30 | DRG 481 ==
LOC: M ED 15:03 → EDBD 15:03 → M ED INP 19:21 → M MSPAV 23:00 → M PCU 11-30 01:30
PROVIDERS: ADMIT Family Medicine; ATTEND Internal Medicine
PROC: 0QS704Z Reposition Left Upper Femur with Internal Fixation Device, Open Approach (ICD-10-PCS; principal; 2021-11-30 13:00)
DX: S72.012A Unspecified intracapsular fracture of left femur, initial encounter for closed fracture (principal); I50.32 Chronic diastolic (congestive) heart failure; W19.XXXA Unspecified fall, initial encounter; Y92.129 Unspecified place in nursing home as the place of occurrence of the external cause; Y93.9 Activity, unspecified; Y99.8 Other external cause status; G30.9 Alzheimer's disease, unspecified; F02.80 Dementia in other diseases classified elsewhere, unspecified severity, without behavioral disturbance, psychotic disturbance, mood disturbance, and anxiety; J44.9 Chronic obstructive pulmonary disease, unspecified; E78.5 Hyperlipidemia, unspecified; S00.03XA Contusion of scalp, initial encounter; E03.9 Hypothyroidism, unspecified; D50.9 Iron deficiency anemia, unspecified; I25.2 Old myocardial infarction; I11.0 Hypertensive heart disease with heart failure; E11.9 Type 2 diabetes mellitus without complications; Z79.82 Long term (current) use of aspirin; Z79.02 Long term (current) use of antithrombotics/antiplatelets; Z79.899 Other long term (current) drug therapy; Z96.1 Presence of intraocular lens; Z98.41 Cataract extraction status, right eye; Z98.42 Cataract extraction status, left eye; Z90.49 Acquired absence of other specified parts of digestive tract

== ENCOUNTER → 2021-12-06 | Outpatient (REF) | payer MEDICARE, MEDICAID ==
[~2021-12-06] MED LIST changes: +AVAP150T31 PO; +BACIOIN5 TOP; +FURO20TA2 PO; +OXYC-517 PO; +XARE10TA PO
== END ==
LOC: SKLAB3 10:35
PROVIDERS: ATTEND Internal Medicine
DX: R19.5 Other fecal abnormalities (principal)

== ENCOUNTER → 2021-12-13 | Outpatient (REF) | payer MEDICARE, MEDICAID ==
[2021-12-13 08:48] LABS: HEMATOCRIT 25.5 % (36.0-47.0); HEMOGLOBIN 8.1 g/dl (12.0-15.5); MEAN CORPUSCULAR HGB CONC 31.8 g/dl (32.0-36.5); MEAN CORPUSCULAR VOLUME 97.7 fl (80.0-96.0); PLATELET COUNT, AUTOMATED 410 10^3/uL (150-450); RED BLOOD COUNT 2.61 10^6/uL (4.00-5.40); WHITE BLOOD COUNT 7.5 10^3/uL (4.0-10.0)
[2021-12-13 09:17] LABS: BLOOD UREA NITROGEN 21 MG/DL (7-18); CALCIUM LEVEL 9.1 MG/DL (8.8-10.2); CARBON DIOXIDE LEVEL 27 MEQ/L (21-32); CHLORIDE LEVEL 107 MEQ/L (98-107); CREATININE FOR GFR 0.73 MG/DL (0.55-1.30); GLOMERULAR FILTRATION RATE > 60.0 (>32); GLUCOSE, FASTING 100 MG/DL (70-100); POTASSIUM SERUM 4.6 MEQ/L (3.5-5.1); SODIUM LEVEL 141 MEQ/L (136-145)
== END ==
LOC: SKLAB3 11:08
PROVIDERS: ATTEND Internal Medicine
DX: N18.9 Chronic kidney disease, unspecified (principal)

== ENCOUNTER 2021-12-14 20:19 | Emergency (ER) | payer MEDICARE, MEDICAID ==
[~2021-12-14] VITALS: Ht 167.6 cm; Wt 45.9 kg
[2021-12-14 22:46] VITALS: BP 148/78
== END 2021-12-15 00:20 | disposition home or self-care (01) ==
LOC: EDBD 20:19 → M ED 20:19
DX: R29.6 Repeated falls (principal); E11.9 Type 2 diabetes mellitus without complications; I50.9 Heart failure, unspecified; J44.9 Chronic obstructive pulmonary disease, unspecified; F03.90 Unspecified dementia, unspecified severity, without behavioral disturbance, psychotic disturbance, mood disturbance, and anxiety; S72.012D Unspecified intracapsular fracture of left femur, subsequent encounter for closed fracture with routine healing; Z98.890 Other specified postprocedural states; Z79.899 Other long term (current) drug therapy; Z79.01 Long term (current) use of anticoagulants; Z79.890 Hormone replacement therapy; Z79.82 Long term (current) use of aspirin; Z79.2 Long term (current) use of antibiotics

== ENCOUNTER → 2021-12-19 | Outpatient (CLI) | payer MEDICARE, MEDICAID | LOC: M SOG 12:56 | PROVIDERS: ATTEND Orthopaedic Surgery | DX: M25.552 Pain in left hip (principal) ==

== ENCOUNTER → 2022-01-26 | Outpatient (CLI) | payer MEDICARE, MEDICAID | LOC: M SOG 07:57 | PROVIDERS: ATTEND Orthopaedic Surgery | DX: S72.02 Fracture of epiphysis (separation) (upper) of femur (principal); W18.30XD Fall on same level, unspecified, subsequent encounter ==

== ENCOUNTER → 2022-02-23 | Outpatient (REF) | payer MEDICARE, MEDICAID ==
[2022-02-23 13:45] LABS: HEMATOCRIT 33.1 % (36.0-47.0); HEMOGLOBIN 10.4 g/dl (12.0-15.5); MEAN CORPUSCULAR HEMOGLOBIN 30.6 pg (27.0-33.0); MEAN CORPUSCULAR HGB CONC 31.4 g/dl (32.0-36.5); MEAN CORPUSCULAR VOLUME 97.4 fl (80.0-96.0); PLATELET COUNT, AUTOMATED 184 10^3/uL (150-450); WHITE BLOOD COUNT 5.4 10^3/uL (4.0-10.0)
[2022-02-23 14:11] LABS: ALBUMIN 3.1 GM/DL (3.2-5.2); ALT/SGPT 24 U/L (12-78); BILIRUBIN,TOTAL 0.3 MG/DL (0.2-1.0); BLOOD UREA NITROGEN 14 MG/DL (7-18); CALCIUM LEVEL 8.7 MG/DL (8.8-10.2); CARBON DIOXIDE LEVEL 31 MEQ/L (21-32); CHLORIDE LEVEL 99 MEQ/L (98-107); CREATININE FOR GFR 0.65 MG/DL (0.55-1.30); GLOMERULAR FILTRATION RATE > 60.0 (>32); GLUCOSE, FASTING 126 MG/DL (70-100); POTASSIUM SERUM 3.7 MEQ/L (3.5-5.1); SODIUM LEVEL 134 MEQ/L (136-145); TOTAL PROTEIN 6.1 GM/DL (6.4-8.2)
== END ==
LOC: SKLAB3 07:00
PROVIDERS: ATTEND Internal Medicine
DX: U07.1 COVID-19 (principal); Z79.899 Other long term (current) drug therapy

== ENCOUNTER → 2022-02-23 | Outpatient (CLI) | payer MEDICARE, MEDICAID | LOC: M RAD 11:12 | PROVIDERS: ATTEND Internal Medicine | DX: M25.552 Pain in left hip (principal); Z53.9 Procedure and treatment not carried out, unspecified reason ==

== ENCOUNTER → 2022-02-23 | Outpatient (REF) | payer MEDICARE, MEDICAID | LOC: SKLAB3 08:42 | PROVIDERS: ATTEND Internal Medicine | DX: M25.552 Pain in left hip (principal); M51.36 Other intervertebral disc degeneration, lumbar region; Z91.81 History of falling ==

== ENCOUNTER → 2022-02-26 | Outpatient (REF) | payer MEDICARE, MEDICAID ==
[2022-02-26 09:56] LABS: HEMATOCRIT 32.8 % (36.0-47.0); HEMOGLOBIN 10.2 g/dl (12.0-15.5); MEAN CORPUSCULAR HEMOGLOBIN 30.1 pg (27.0-33.0); MEAN CORPUSCULAR HGB CONC 31.1 g/dl (32.0-36.5); MEAN CORPUSCULAR VOLUME 96.8 fl (80.0-96.0); PLATELET COUNT, AUTOMATED 209 10^3/uL (150-450); RED BLOOD COUNT 3.39 10^6/uL (4.00-5.40)
[2022-02-26 10:13] LABS: ALBUMIN 2.7 GM/DL (3.2-5.2); ALT/SGPT 22 U/L (12-78); BILIRUBIN,TOTAL 0.2 MG/DL (0.2-1.0); BLOOD UREA NITROGEN 11 MG/DL (7-18); CALCIUM LEVEL 8.8 MG/DL (8.8-10.2); CARBON DIOXIDE LEVEL 28 MEQ/L (21-32); CHLORIDE LEVEL 108 MEQ/L (98-107); CREATININE FOR GFR 0.55 MG/DL (0.55-1.30); GLOMERULAR FILTRATION RATE > 60.0 (>32); GLUCOSE, FASTING 78 MG/DL (70-100); POTASSIUM SERUM 3.8 MEQ/L (3.5-5.1); SODIUM LEVEL 141 MEQ/L (136-145); TOTAL PROTEIN 5.9 GM/DL (6.4-8.2)
== END ==
LOC: SKLAB3 07:02
PROVIDERS: ATTEND Internal Medicine
DX: U07.1 COVID-19 (principal); Z79.899 Other long term (current) drug therapy

== ENCOUNTER → 2022-03-01 | Outpatient (REF) | payer MEDICARE, MEDICAID ==
[2022-03-01 10:29] LABS: HEMATOCRIT 31.8 % (36.0-47.0); HEMOGLOBIN 10.2 g/dl (12.0-15.5); MEAN CORPUSCULAR HEMOGLOBIN 30.4 pg (27.0-33.0); MEAN CORPUSCULAR HGB CONC 32.1 g/dl (32.0-36.5); MEAN CORPUSCULAR VOLUME 94.9 fl (80.0-96.0); PLATELET COUNT, AUTOMATED 217 10^3/uL (150-450); RED BLOOD COUNT 3.35 10^6/uL (4.00-5.40); WHITE BLOOD COUNT 4.7 10^3/uL (4.0-10.0)
[2022-03-01 11:21] LABS: ALBUMIN 2.9 GM/DL (3.2-5.2); BILIRUBIN,TOTAL 0.2 MG/DL (0.2-1.0); CALCIUM LEVEL 8.6 MG/DL (8.8-10.2); CREATININE FOR GFR 1.02 MG/DL (0.55-1.30); GLOMERULAR FILTRATION RATE 55.1 (>32); POTASSIUM SERUM 3.9 MEQ/L (3.5-5.1); TOTAL PROTEIN 5.9 GM/DL (6.4-8.2)
== END ==
LOC: SKLAB2 07:00
PROVIDERS: ATTEND Internal Medicine
DX: U07.1 COVID-19 (principal); Z79.899 Other long term (current) drug therapy

== ENCOUNTER → 2022-03-05 | Outpatient (REF) | payer MEDICARE, MEDICAID ==
[2022-03-05 09:31] LABS: HEMATOCRIT 36.9 % (36.0-47.0); HEMOGLOBIN 11.3 g/dl (12.0-15.5); MEAN CORPUSCULAR HEMOGLOBIN 29.6 pg (27.0-33.0); MEAN CORPUSCULAR HGB CONC 30.6 g/dl (32.0-36.5); MEAN CORPUSCULAR VOLUME 96.6 fl (80.0-96.0); PLATELET COUNT, AUTOMATED 230 10^3/uL (150-450); RED BLOOD COUNT 3.82 10^6/uL (4.00-5.40)
[2022-03-05 09:49] LABS: ALBUMIN 3.2 GM/DL (3.2-5.2); ALT/SGPT 19 U/L (12-78); BILIRUBIN,TOTAL 0.2 MG/DL (0.2-1.0); BLOOD UREA NITROGEN 16 MG/DL (7-18); CALCIUM LEVEL 8.7 MG/DL (8.8-10.2); CARBON DIOXIDE LEVEL 32 MEQ/L (21-32); CHLORIDE LEVEL 104 MEQ/L (98-107); CREATININE FOR GFR 0.62 MG/DL (0.55-1.30); GLOMERULAR FILTRATION RATE > 60.0 (>32); GLUCOSE, FASTING 99 MG/DL (70-100); POTASSIUM SERUM 4.1 MEQ/L (3.5-5.1); SODIUM LEVEL 140 MEQ/L (136-145); TOTAL PROTEIN 6.4 GM/DL (6.4-8.2)
== END ==
LOC: SKLAB2 14:54
PROVIDERS: ATTEND Nurse Practitioner
DX: U07.1 COVID-19 (principal); Z79.899 Other long term (current) drug therapy

== ENCOUNTER → 2022-03-08 | Outpatient (REF) | payer MEDICARE, MEDICAID ==
[2022-03-08 13:41] LABS: BASO % 0.3 % (0.0-1.0); EOS # 0.1 10^3/uL (0.0-0.5); EOS % 1.6 % (0.0-3.0); HEMATOCRIT 32.9 % (36.0-47.0); HEMOGLOBIN 10.3 g/dl (12.0-15.5); LYMPH # 1.9 10^3/uL (1.5-5.0); LYMPH % 31.1 % (24.0-44.0); MEAN CORPUSCULAR HGB CONC 31.3 g/dl (32.0-36.5); MEAN CORPUSCULAR VOLUME 99.1 fl (80.0-96.0); MONO # 0.7 10^3/uL (0.0-0.8); MONO % 10.7 % (2.0-8.0); NEUTROPHILS # 3.4 10^3/uL (1.5-8.5); NEUTROPHILS % 55.8 % (36.0-66.0); PLATELET COUNT, AUTOMATED 216 10^3/uL (150-450); RED BLOOD COUNT 3.32 10^6/uL (4.00-5.40); WHITE BLOOD COUNT 6.1 10^3/uL (4.0-10.0)
[2022-03-08 15:10] LABS: APPEARANCE, URINE MANUAL HAZY (CLEAR); COLOR, URINE MANUAL LT YELLOW (YELLOW)
[2022-03-08 15:11] LABS: BILIRUBIN, URINE MANUAL NEGATIVE (NEGATIVE); BLOOD URINE MANUAL POSITIVE (NEGATIVE); GLUCOSE, URINE (UA) MANUAL NEGATIVE (NEGATIVE); KETONE, URINE MANUAL NEGATIVE (NEGATIVE); LEUKOCYTE ESTERASE, URINE MAN POSITIVE (NEGATIVE); NITRITE, URINE MANUAL POSITIVE (NEGATIVE); PROTEIN, URINE MANUAL TRACE mg/dL (NEGATIVE); UROBILINOGEN, URINE MANUAL NORMAL (NORMAL)
[2022-03-08 15:17] LABS: RBC, URINE 30-40 /hpf (0-3); SQUAMOUS EPITHELIAL CELL URINE SMALL AMOUNT /hpf (SMALL AMT); TRANSITIONAL EPI CELLS, URINE SMALL AMOUNT /hpf; WBC, URINE 30-40 /hpf (0-3)
[2022-03-08 15:18] LABS: AMORPHOUS SEDIMENT, URINE MOD AMOUNT (NEGATIVE); BACTERIA, URINE LARGE AMOUNT; HYALINE CAST, URINE NONE SEEN /lpf (0-1); MUCUS, URINE SMALL AMOUNT (NEGATIVE); TRIPLE PHOSPHATE CRYSTAL,URINE LARGE AMOUNT /hpf
[2022-03-08 16:13] LABS: ALBUMIN 3.1 GM/DL (3.2-5.2); BLOOD UREA NITROGEN 19 MG/DL (7-18); CALCIUM LEVEL 8.6 MG/DL (8.8-10.2); CARBON DIOXIDE LEVEL 31 MEQ/L (21-32); CHLORIDE LEVEL 104 MEQ/L (98-107); CREATININE FOR GFR 0.76 MG/DL (0.55-1.30); GLOMERULAR FILTRATION RATE > 60.0 (>32); GLUCOSE, FASTING 116 MG/DL (70-100); MAGNESIUM LEVEL 2.3 MG/DL (1.8-2.4); PHOSPHORUS LEVEL 3.5 MG/DL (2.5-4.9); POTASSIUM SERUM 4.1 MEQ/L (3.5-5.1); SODIUM LEVEL 140 MEQ/L (136-145)
[2022-03-08 17:11] LABS: VITAMIN B12 LEVEL 233 PG/ML (247-911)
[2022-03-08 20:24] LABS: HEMOGLOBIN A1c 6.1 %
== END ==
LOC: SKLAB3 07:00
PROVIDERS: ATTEND Nurse Practitioner
DX: N18.9 Chronic kidney disease, unspecified (principal); Z79.899 Other long term (current) drug therapy

== ENCOUNTER → 2022-05-15 | Outpatient (CLI) | payer MEDICARE, MEDICAID | LOC: M SOG 07:58 | PROVIDERS: ATTEND Orthopaedic Surgery | DX: S72.012D Unspecified intracapsular fracture of left femur, subsequent encounter for closed fracture with routine healing (principal); W18.30XD Fall on same level, unspecified, subsequent encounter ==

== ENCOUNTER → 2022-09-10 | Outpatient (REF) | payer MEDICARE, MEDICAID ==
[2022-09-10 10:58] LABS: HEMATOCRIT 33.1 % (36.0-47.0); HEMOGLOBIN 10.4 g/dl (12.0-15.5); MEAN CORPUSCULAR HEMOGLOBIN 31.6 pg (27.0-33.0); MEAN CORPUSCULAR HGB CONC 31.4 g/dl (32.0-36.5); MEAN CORPUSCULAR VOLUME 100.6 fl (80.0-96.0); PLATELET COUNT, AUTOMATED 210 10^3/uL (150-450); RED BLOOD COUNT 3.29 10^6/uL (4.00-5.40)
[2022-09-10 11:10] LABS: HEMOGLOBIN A1c 5.5 % (4.0-6.0)
[2022-09-10 11:25] LABS: THYROID STIMULATING HORMONE 7.929 uIU/ML (0.55-4.78); VITAMIN B12 LEVEL 394 PG/ML (211-911)
[2022-09-10 12:01] LABS: ALBUMIN 3.2 G/DL (3.2-5.2); ALKALINE PHOSPHATASE 102 U/L (46-116); ALT/SGPT 21 U/L (7.0-40); AST/SGOT 10 U/L (<34); BILIRUBIN,TOTAL 0.3 MG/DL (0.3-1.2); BLOOD UREA NITROGEN 20 MG/DL (9-23); CALCIUM LEVEL 8.8 MG/DL (8.3-10.6); CARBON DIOXIDE LEVEL 30 MMOL/L (20-31); CHLORIDE LEVEL 105 MMOL/L (98-107); CHOLESTEROL LEVEL 106 MG/DL (<200); CHOLESTEROL RISK RATIO 1.92 (<5); CREATININE FOR GFR 0.84 MG/DL (0.55-1.30); GLOMERULAR FILTRATION RATE > 60.0 (>32); GLUCOSE, FASTING 109 MG/DL (74-106); LDL CHOLESTEROL 34.6 MG/DL (<100); NON-HDL-C 51 MG/DL; POTASSIUM SERUM 4.3 MMOL/L (3.5-5.1); SODIUM LEVEL 141 MMOL/L (136-145); TOTAL PROTEIN 5.8 G/DL (5.7-8.2); TRIGLYCERIDES LEVEL 82 MG/DL (<150)
== END ==
LOC: SKLAB3 09:53
PROVIDERS: ATTEND Nurse Practitioner
DX: F03.90 Unspecified dementia, unspecified severity, without behavioral disturbance, psychotic disturbance, mood disturbance, and anxiety (principal); E03.9 Hypothyroidism, unspecified; E53.8 Deficiency of other specified B group vitamins; Z79.899 Other long term (current) drug therapy

== ENCOUNTER → 2022-10-12 | Outpatient (REF) | payer MEDICARE, MEDICAID | LOC: SKLAB3 11:47 | PROVIDERS: ATTEND Nurse Practitioner | DX: J98.4 Other disorders of lung (principal); I51.7 Cardiomegaly; I70.0 Atherosclerosis of aorta; M85.88 Other specified disorders of bone density and structure, other site ==

== ENCOUNTER → 2022-10-25 | Outpatient (REF) | payer MEDICARE, MEDICAID ==
[2022-10-26 00:10] LABS: AMORPHOUS SEDIMENT SMALL (NEGATIVE); APPEARANCE, URINE TURBID (CLEAR); BACTERIA, URINE AUTO 1+ (NEGATIVE); BILIRUBIN, URINE AUTO 1+ (NEGATIVE); BLOOD, URINE BLOOD NEGATIVE (NEGATIVE); COLOR, URINE AMBER (YELLOW); GLUCOSE, URINE (UA) AUTO NEGATIVE (NEGATIVE); KETONE, URINE AUTO NEGATIVE (NEGATIVE); LEUKOCYTE ESTERASE, URINE AUTO 2+ (NEGATIVE); NITRITE, URINE AUTO NEGATIVE (NEGATIVE); PROTEIN, URINE AUTO 3+ mg/dL (NEGATIVE); RBC, URINE AUTO 8 /HPF (0-3); SQUAMOUS EPITHELIAL CELL UR AU 3 /HPF (0-6); TRIPLE PHOSPHATE CRYSTALS SMALL; UROBILINOGEN, URINE AUTO 0.2 mg/dL (0.0-2.0); WBC, URINE AUTO 1 /HPF (0-3)
== END ==
LOC: SKLAB3 22:00
PROVIDERS: ATTEND Internal Medicine
DX: R46.89 Other symptoms and signs involving appearance and behavior (principal); Z79.899 Other long term (current) drug therapy

== ENCOUNTER → 2022-10-26 | Outpatient (REF) | payer MEDICARE, MEDICAID ==
[2022-10-26 07:59] LABS: HEMATOCRIT 38.4 % (36.0-47.0); HEMOGLOBIN 11.9 g/dl (12.0-15.5); MEAN CORPUSCULAR HEMOGLOBIN 30.5 pg (27.0-33.0); MEAN CORPUSCULAR VOLUME 98.5 fl (80.0-96.0); PLATELET COUNT, AUTOMATED 299 10^3/uL (150-450); WHITE BLOOD COUNT 7.4 10^3/uL (4.0-10.0)
[2022-10-26 08:23] LABS: BLOOD UREA NITROGEN 11 MG/DL (9-23); CALCIUM LEVEL 9.2 MG/DL (8.3-10.6); CARBON DIOXIDE LEVEL 29 MMOL/L (20-31); CHLORIDE LEVEL 102 MMOL/L (98-107); CREATININE FOR GFR 0.81 MG/DL (0.55-1.30); GLOMERULAR FILTRATION RATE > 60.0 (>32); GLUCOSE, FASTING 101 MG/DL (74-106); POTASSIUM SERUM 4.5 MMOL/L (3.5-5.1); SODIUM LEVEL 135 MMOL/L (136-145)
== END ==
LOC: SKLAB3 07:01
PROVIDERS: ATTEND Nurse Practitioner
DX: R41.82 Altered mental status, unspecified (principal)

== ENCOUNTER → 2022-10-27 | Outpatient (CLI) | payer MEDICARE, MEDICAID | LOC: M RAD 12:16 | DX: M25.561 Pain in right knee (principal) ==

== ENCOUNTER → 2022-10-27 | Outpatient (REF) | payer MEDICAID, MEDICARE | LOC: SKLAB3 11:05 | PROVIDERS: ATTEND Internal Medicine | DX: M25.569 Pain in unspecified knee (principal); Z53.8 Procedure and treatment not carried out for other reasons ==

== ENCOUNTER → 2022-11-13 | Outpatient (REF) | payer MEDICARE, MEDICAID ==
[2022-11-13 08:03] LABS: CHOLESTEROL RISK RATIO 1.97 (<5); HDL CHOLESTEROL 55.6 MG/DL (>40); LDL CHOLESTEROL 45.8 MG/DL (<100); NON-HDL-C 54.4 MG/DL
== END ==
LOC: SKLAB3 11:43
PROVIDERS: ATTEND Nurse Practitioner
DX: E78.5 Hyperlipidemia, unspecified (principal)

== ENCOUNTER → 2023-03-19 | Outpatient (REF) | payer MEDICARE, MEDICAID ==
[2023-03-19 06:14] LABS: HEMATOCRIT 34.3 % (36.0-47.0); MEAN CORPUSCULAR HEMOGLOBIN 31.2 pg (27.0-33.0); MEAN CORPUSCULAR HGB CONC 32.1 g/dl (32.0-36.5); MEAN CORPUSCULAR VOLUME 97.2 fl (80.0-96.0); PLATELET COUNT, AUTOMATED 172 10^3/uL (150-450); RED BLOOD COUNT 3.53 10^6/uL (4.00-5.40); WHITE BLOOD COUNT 5.3 10^3/uL (4.0-10.0)
[2023-03-19 06:37] LABS: ALBUMIN 3.3 G/DL (3.2-5.2); ALKALINE PHOSPHATASE 70 U/L (46-116); ALT/SGPT 16 U/L (7.0-40); AST/SGOT 16 U/L (<34); BILIRUBIN,TOTAL 0.6 MG/DL (0.3-1.2); BLOOD UREA NITROGEN 11 MG/DL (9-23); CALCIUM LEVEL 8.9 MG/DL (8.3-10.6); CARBON DIOXIDE LEVEL 29 MMOL/L (20-31); CHLORIDE LEVEL 106 MMOL/L (98-107); GLOMERULAR FILTRATION RATE > 60.0 (>32); GLUCOSE, FASTING 91 MG/DL (74-106); PHOSPHORUS LEVEL 3.8 MG/DL (2.4-5.1); POTASSIUM SERUM 4.2 MMOL/L (3.5-5.1); SODIUM LEVEL 141 MMOL/L (136-145); TOTAL PROTEIN 5.9 G/DL (5.7-8.2)
[2023-03-19 06:38] LABS: PTH INTACT 64.6 PG/ML (18.5-88.0)
[2023-03-19 06:39] LABS: THYROID STIMULATING HORMONE 5.573 uIU/ML (0.55-4.78); VITAMIN B12 LEVEL 674 PG/ML (211-911)
[2023-03-19 07:15] LABS: HEMOGLOBIN A1c 5.2 % (4.0-6.0)
== END ==
LOC: SKLAB3 10:37
PROVIDERS: ATTEND Nurse Practitioner
DX: N18.9 Chronic kidney disease, unspecified (principal); F03.90 Unspecified dementia, unspecified severity, without behavioral disturbance, psychotic disturbance, mood disturbance, and anxiety; E03.9 Hypothyroidism, unspecified; Z79.899 Other long term (current) drug therapy

== ENCOUNTER → 2023-03-26 | Outpatient (REF) | payer MEDICARE, MEDICAID | LOC: SKLAB3 12:53 | PROVIDERS: ATTEND Nurse Practitioner Adult Health | DX: I50.9 Heart failure, unspecified (principal) ==

== ENCOUNTER → 2023-04-30 | Outpatient (REF) | payer MEDICARE, MEDICAID ==
[2023-04-30 12:59] LABS: HEMATOCRIT 31.8 % (36.0-47.0); HEMOGLOBIN 10.2 g/dl (12.0-15.5); MEAN CORPUSCULAR HEMOGLOBIN 31.7 pg (27.0-33.0); MEAN CORPUSCULAR HGB CONC 32.1 g/dl (32.0-36.5); MEAN CORPUSCULAR VOLUME 98.8 fl (80.0-96.0); PLATELET COUNT, AUTOMATED 198 10^3/uL (150-450); RED BLOOD COUNT 3.22 10^6/uL (4.00-5.40); WHITE BLOOD COUNT 4.7 10^3/uL (4.0-10.0)
[2023-04-30 13:25] LABS: BLOOD UREA NITROGEN 12 MG/DL (9-23); CALCIUM LEVEL 8.5 MG/DL (8.3-10.6); CARBON DIOXIDE LEVEL 29 MMOL/L (20-31); CHLORIDE LEVEL 102 MMOL/L (98-107); CREATININE FOR GFR 0.77 MG/DL (0.55-1.30); GLOMERULAR FILTRATION RATE > 60.0 (>32); GLUCOSE, FASTING 100 MG/DL (74-106); POTASSIUM SERUM 4.4 MMOL/L (3.5-5.1); SODIUM LEVEL 136 MMOL/L (136-145)
== END ==
LOC: SKLAB3 12:04
PROVIDERS: ATTEND Nurse Practitioner Adult Health
DX: R06.02 Shortness of breath (principal)

== ENCOUNTER → 2023-07-22 | Outpatient (REF) | payer MEDICARE, MEDICAID ==
[~2023-07-22] MED LIST changes: +CEFD1CAP9 PO; -CEFD300C41 PO
== END ==
LOC: SKLAB3 12:00
PROVIDERS: ATTEND Nurse Practitioner Adult Health
DX: R05.9 Cough, unspecified (principal)

== ENCOUNTER 2023-08-26 00:01 | Emergency (ER) | payer MEDICARE, MEDICAID ==
[~2023-08-26] VITALS: Ht 162.6 cm; Wt 76.0 kg
[~2023-08-26 00:01] MED LIST changes: +IRBE150T27 PO; -IRBE150T7 PO
[2023-08-26 00:24] VITALS: TEMP 97
[2023-08-26 01:13] LABS: APPEARANCE, URINE CLEAR (CLEAR); BACTERIA, URINE AUTO NEGATIVE (NEGATIVE); BILIRUBIN, URINE AUTO NEGATIVE (NEGATIVE); BLOOD, URINE BLOOD NEGATIVE (NEGATIVE); COLOR, URINE STRAW (YELLOW); GLUCOSE, URINE (UA) AUTO NEGATIVE (NEGATIVE); KETONE, URINE AUTO NEGATIVE (NEGATIVE); LEUKOCYTE ESTERASE, URINE AUTO 3+ (NEGATIVE); MUCUS, URINE SMALL (NEGATIVE); NITRITE, URINE AUTO NEGATIVE (NEGATIVE); PROTEIN, URINE AUTO NEGATIVE (NEGATIVE); RBC, URINE AUTO 1 /HPF (0-3); SPECIFIC GRAVITY URINE AUTO 1.008 (1.002-1.035); SQUAMOUS EPITHELIAL CELL UR AU 0 /HPF (0-6); WBC, URINE AUTO 20 /HPF (0-3)
[2023-08-26 01:20] LABS: BASO % 0.5 % (0.0-1.0); EOS # 0.4 10^3/uL (0.0-0.5); EOS % 6.4 % (0.0-3.0); HEMATOCRIT 33.4 % (36.0-47.0); LYMPH # 1.7 10^3/uL (1.5-5.0); LYMPH % 27.4 % (24.0-44.0); MEAN CORPUSCULAR HEMOGLOBIN 31.8 pg (27.0-33.0); MEAN CORPUSCULAR HGB CONC 32.9 g/dl (32.0-36.5); MEAN CORPUSCULAR VOLUME 96.5 fl (80.0-96.0); MONO # 0.7 10^3/uL (0.0-0.8); MONO % 10.6 % (2.0-8.0); NEUTROPHILS # 3.4 10^3/uL (1.5-8.5); NEUTROPHILS % 54.6 % (36.0-66.0); PLATELET COUNT, AUTOMATED 215 10^3/uL (150-450); RED BLOOD COUNT 3.46 10^6/uL (4.00-5.40); WHITE BLOOD COUNT 6.1 10^3/uL (4.0-10.0)
[2023-08-26 01:36] LABS: BLOOD UREA NITROGEN 13 MG/DL (9-23); CALCIUM LEVEL 8.1 MG/DL (8.3-10.6); CARBON DIOXIDE LEVEL 28 MMOL/L (20-31); CHLORIDE LEVEL 105 MMOL/L (98-107); CREATININE FOR GFR 0.88 MG/DL (0.55-1.30); GLOMERULAR FILTRATION RATE > 60.0 (>32); GLUCOSE, FASTING 104 MG/DL (74-106); POTASSIUM SERUM 4.4 MMOL/L (3.5-5.1); SODIUM LEVEL 138 MMOL/L (136-145)
[2023-08-26 01:44] LABS: RSV AMPLIFICATION NEGATIVE (NEGATIVE)
[2023-08-26 03:15] VITALS: BP 155/67
[2023-08-26 03:30] VITALS: O2SAT 97
== END 2023-08-26 03:35 | disposition home or self-care (01) ==
LOC: M ED 00:01
DX: F03.90 Unspecified dementia, unspecified severity, without behavioral disturbance, psychotic disturbance, mood disturbance, and anxiety (principal); E11.9 Type 2 diabetes mellitus without complications; Z79.4 Long term (current) use of insulin; I50.9 Heart failure, unspecified; E03.9 Hypothyroidism, unspecified; Z96.0 Presence of urogenital implants; R94.31 Abnormal electrocardiogram [ECG] [EKG]; Z79.899 Other long term (current) drug therapy; Z11.52 Encounter for screening for COVID-19

== ENCOUNTER → 2023-09-17 | Outpatient (REF) | payer MEDICARE, MEDICAID ==
[~2023-09-17] MED LIST changes: -ASPI-161 PO; +ASPI-615 PO
[2023-09-17 13:14] LABS: HEMOGLOBIN 10.9 g/dl (12.0-15.5); MEAN CORPUSCULAR HEMOGLOBIN 31.4 pg (27.0-33.0); MEAN CORPUSCULAR HGB CONC 32.1 g/dl (32.0-36.5); PLATELET COUNT, AUTOMATED 238 10^3/uL (150-450); RED BLOOD COUNT 3.47 10^6/uL (4.00-5.40); WHITE BLOOD COUNT 6.1 10^3/uL (4.0-10.0)
[2023-09-17 13:37] LABS: HEMOGLOBIN A1c 5.8 % (4.0-6.0)
[2023-09-17 13:39] LABS: ALBUMIN 3.4 G/DL (3.2-5.2); ALKALINE PHOSPHATASE 90 U/L (46-116); ALT/SGPT 12 U/L (7.0-40); AST/SGOT 15 U/L (<34); BILIRUBIN,TOTAL 0.4 MG/DL (0.3-1.2); BLOOD UREA NITROGEN 16 MG/DL (9-23); CALCIUM LEVEL 8.5 MG/DL (8.3-10.6); CARBON DIOXIDE LEVEL 30 MMOL/L (20-31); CHLORIDE LEVEL 102 MMOL/L (98-107); CREATININE FOR GFR 0.88 MG/DL (0.55-1.30); GLOMERULAR FILTRATION RATE > 60.0 (>32); GLUCOSE, FASTING 91 MG/DL (74-106); SODIUM LEVEL 137 MMOL/L (136-145); THYROID STIMULATING HORMONE 4.949 uIU/ML (0.55-4.78); TOTAL PROTEIN 6.2 G/DL (5.7-8.2)
[2023-09-17 13:40] LABS: VITAMIN B12 LEVEL 512 PG/ML (211-911)
== END ==
LOC: SKLAB3 11:00
PROVIDERS: ATTEND Internal Medicine
DX: F03.90 Unspecified dementia, unspecified severity, without behavioral disturbance, psychotic disturbance, mood disturbance, and anxiety (principal); E03.9 Hypothyroidism, unspecified; E53.8 Deficiency of other specified B group vitamins; E11.9 Type 2 diabetes mellitus without complications

== ENCOUNTER → 2023-10-22 | Outpatient (REF) | payer MEDICARE, MEDICAID ==
[2023-10-22 10:13] LABS: HEMATOCRIT 33.7 % (36.0-47.0); HEMOGLOBIN 10.8 g/dl (12.0-15.5); MEAN CORPUSCULAR HEMOGLOBIN 30.8 pg (27.0-33.0); PLATELET COUNT, AUTOMATED 202 10^3/uL (150-450); RED BLOOD COUNT 3.51 10^6/uL (4.00-5.40); WHITE BLOOD COUNT 6.3 10^3/uL (4.0-10.0)
[2023-10-22 10:36] LABS: BLOOD UREA NITROGEN 15 MG/DL (9-23); CALCIUM LEVEL 8.4 MG/DL (8.3-10.6); CARBON DIOXIDE LEVEL 28 MMOL/L (20-31); CHLORIDE LEVEL 102 MMOL/L (98-107); CREATININE FOR GFR 0.86 MG/DL (0.55-1.30); GLOMERULAR FILTRATION RATE > 60.0 (>32); GLUCOSE, FASTING 107 MG/DL (74-106); POTASSIUM SERUM 3.9 MMOL/L (3.5-5.1); SODIUM LEVEL 136 MMOL/L (136-145)
== END ==
LOC: SKLAB3 09:27
PROVIDERS: ATTEND Nurse Practitioner Adult Health
DX: J06.9 Acute upper respiratory infection, unspecified (principal)

== ENCOUNTER → 2023-10-22 | Outpatient (REF) | payer MEDICARE, MEDICAID | LOC: SKLAB3 11:11 | PROVIDERS: ATTEND Nurse Practitioner Adult Health | DX: M25.519 Pain in unspecified shoulder (principal); W19.XXXA Unspecified fall, initial encounter; Z53.8 Procedure and treatment not carried out for other reasons ==

== ENCOUNTER → 2023-10-22 | Outpatient (CLI) | payer MEDICARE, MEDICAID | LOC: M RAD 11:29 | PROVIDERS: ATTEND Nurse Practitioner Adult Health | DX: M25.511 Pain in right shoulder (principal); J06.9 Acute upper respiratory infection, unspecified ==

== ENCOUNTER → 2023-11-20 | Outpatient (REF) | payer MEDICARE, MEDICAID ==
[2023-11-20 10:36] LABS: CHOLESTEROL RISK RATIO 2.64 (<5); HDL CHOLESTEROL 41.6 MG/DL (>40); LDL CHOLESTEROL 52.2 MG/DL (<100); NON-HDL-C 68.4 MG/DL
[2023-11-20 10:51] LABS: TOTAL 25(OH) VITAMIN D 13.1 NG/ML (20.0-100.0)
== END ==
LOC: SKLAB3 07:00
PROVIDERS: ATTEND Nurse Practitioner
DX: E03.9 Hypothyroidism, unspecified (principal); E55.9 Vitamin D deficiency, unspecified

== ENCOUNTER → 2024-02-13 | Outpatient (REF) | payer MEDICARE, MEDICAID ==
[2024-02-13 14:01] LABS: HEMATOCRIT 36.2 % (36.0-47.0); HEMOGLOBIN 11.7 g/dl (12.0-15.5); MEAN CORPUSCULAR HEMOGLOBIN 31.6 pg (27.0-33.0); MEAN CORPUSCULAR HGB CONC 32.3 g/dl (32.0-36.5); MEAN CORPUSCULAR VOLUME 97.8 fl (80.0-96.0); PLATELET COUNT, AUTOMATED 220 10^3/uL (150-450); WHITE BLOOD COUNT 6.6 10^3/uL (4.0-10.0)
[2024-02-13 14:30] LABS: BLOOD UREA NITROGEN 13 MG/DL (9-23); CARBON DIOXIDE LEVEL 31 MMOL/L (20-31); CHLORIDE LEVEL 104 MMOL/L (98-107); CREATININE FOR GFR 0.85 MG/DL (0.55-1.30); GLOMERULAR FILTRATION RATE > 60.0 (>32); GLUCOSE, FASTING 129 MG/DL (74-106); POTASSIUM SERUM 4.1 MMOL/L (3.5-5.1); SODIUM LEVEL 139 MMOL/L (136-145)
== END ==
LOC: SKLAB3 12:49
PROVIDERS: ATTEND Internal Medicine
DX: R41.0 Disorientation, unspecified (principal)

== ENCOUNTER → 2024-03-16 | Outpatient (REF) | payer MEDICARE, MEDICAID ==
[2024-03-16 15:48] LABS: BASO % 0.5 % (0.0-1.0); EOS # 0.3 10^3/uL (0.0-0.5); EOS % 4.6 % (0.0-3.0); HEMOGLOBIN 10.7 g/dl (12.0-15.5); LYMPH # 1.8 10^3/uL (1.5-5.0); LYMPH % 28.8 % (24.0-44.0); MEAN CORPUSCULAR HEMOGLOBIN 31.3 pg (27.0-33.0); MEAN CORPUSCULAR HGB CONC 32.4 g/dl (32.0-36.5); MEAN CORPUSCULAR VOLUME 96.5 fl (80.0-96.0); MONO # 0.5 10^3/uL (0.0-0.8); MONO % 8.6 % (2.0-8.0); NEUTROPHILS # 3.6 10^3/uL (1.5-8.5); NEUTROPHILS % 57.2 % (36.0-66.0); PLATELET COUNT, AUTOMATED 193 10^3/uL (150-450); RED BLOOD COUNT 3.42 10^6/uL (4.00-5.40); WHITE BLOOD COUNT 6.3 10^3/uL (4.0-10.0)
[2024-03-16 16:20] LABS: ALBUMIN 3.2 G/DL (3.2-5.2); BLOOD UREA NITROGEN 19 MG/DL (9-23); CALCIUM LEVEL 8.7 MG/DL (8.3-10.6); CARBON DIOXIDE LEVEL 27 MMOL/L (20-31); CHLORIDE LEVEL 108 MMOL/L (98-107); CREATININE FOR GFR 0.85 MG/DL (0.55-1.30); GLOMERULAR FILTRATION RATE > 60.0 (>32); GLUCOSE, FASTING 99 MG/DL (74-106); PHOSPHORUS LEVEL 3.8 MG/DL (2.4-5.1); POTASSIUM SERUM 4.1 MMOL/L (3.5-5.1); PTH INTACT 88.5 PG/ML (18.5-88.0); SODIUM LEVEL 141 MMOL/L (136-145)
== END ==
LOC: SKLAB3 11:26
PROVIDERS: ATTEND Internal Medicine
DX: N18.9 Chronic kidney disease, unspecified (principal)

== ENCOUNTER → 2024-09-11 | Outpatient (REF) | payer MEDICARE, MEDICAID | LOC: SKLAB3 13:48 | PROVIDERS: ATTEND Internal Medicine | DX: R06.02 Shortness of breath (principal) ==

== ENCOUNTER → 2024-09-11 | Outpatient (REF) | payer MEDICARE, MEDICAID | LOC: SKLAB3 13:41 | PROVIDERS: ATTEND Internal Medicine | DX: Z53.8 Procedure and treatment not carried out for other reasons (principal) ==

== ENCOUNTER → 2024-09-15 | Outpatient (REF) | payer MEDICARE, MEDICAID ==
[2024-09-15 08:40] LABS: HEMATOCRIT 31.9 % (36.0-47.0); HEMOGLOBIN 10.4 g/dl (12.0-15.5); MEAN CORPUSCULAR HEMOGLOBIN 31.3 pg (27.0-33.0); MEAN CORPUSCULAR HGB CONC 32.6 g/dl (32.0-36.5); MEAN CORPUSCULAR VOLUME 96.1 fl (80.0-96.0); PLATELET COUNT, AUTOMATED 206 10^3/uL (150-450); RED BLOOD COUNT 3.32 10^6/uL (4.00-5.40); WHITE BLOOD COUNT 6.5 10^3/uL (4.0-10.0)
[2024-09-15 08:54] LABS: HEMOGLOBIN A1c 5.6 % (4.0-6.0)
[2024-09-15 09:06] LABS: ALBUMIN 2.6 G/DL (3.2-5.2); ALKALINE PHOSPHATASE 72 U/L (35-104); ALT/SGPT 19 U/L (7.0-40); AST/SGOT 21 U/L (<34); BILIRUBIN,TOTAL 0.3 MG/DL (0.3-1.2); BLOOD UREA NITROGEN 12 MG/DL (9-23); CALCIUM LEVEL 8.5 MG/DL (8.3-10.6); CARBON DIOXIDE LEVEL 29 MMOL/L (20-31); CHLORIDE LEVEL 104 MMOL/L (98-107); CREATININE FOR GFR 0.77 MG/DL (0.55-1.30); GLOMERULAR FILTRATION RATE > 60.0 (>32); GLUCOSE, FASTING 106 MG/DL (74-106); POTASSIUM SERUM 3.8 MMOL/L (3.5-5.1); SODIUM LEVEL 142 MMOL/L (136-145); TOTAL PROTEIN 5.4 G/DL (5.7-8.2)
[2024-09-15 09:08] LABS: THYROID STIMULATING HORMONE 6.861 uIU/ML (0.55-4.78); VITAMIN B12 LEVEL 669 PG/ML (211-911)
[2024-09-16 16:19] LABS: IRON (FE) 53 UG/DL (50-170); PERCENT SATURATION 23.1 % (13.2-45.0); TOTAL IRON BINDING CAPACITY 229 UG/DL (250-425)
[2024-09-16 16:23] LABS: TOTAL 25(OH) VITAMIN D 52.6 NG/ML (20.0-100.0)
== END ==
LOC: SKLAB3 07:00
PROVIDERS: ATTEND Internal Medicine
DX: E55.9 Vitamin D deficiency, unspecified (principal); F03.90 Unspecified dementia, unspecified severity, without behavioral disturbance, psychotic disturbance, mood disturbance, and anxiety; Z79.899 Other long term (current) drug therapy; D64.9 Anemia, unspecified

== ENCOUNTER → 2024-10-28 | Outpatient (REF) | payer MEDICARE, MEDICAID ==
[2024-10-28 11:28] LABS: HEMATOCRIT 40.8 % (36.0-47.0); HEMOGLOBIN 13.2 g/dl (12.0-15.5); MEAN CORPUSCULAR HEMOGLOBIN 30.3 pg (27.0-33.0); MEAN CORPUSCULAR HGB CONC 32.4 g/dl (32.0-36.5); MEAN CORPUSCULAR VOLUME 93.8 fl (80.0-96.0); PLATELET COUNT, AUTOMATED 277 10^3/uL (150-450); RED BLOOD COUNT 4.35 10^6/uL (4.00-5.40); WHITE BLOOD COUNT 11.6 10^3/uL (4.0-10.0)
[2024-10-28 11:53] LABS: BLOOD UREA NITROGEN 24 MG/DL (9-23); CALCIUM LEVEL 9.1 MG/DL (8.3-10.6); CARBON DIOXIDE LEVEL 21 MMOL/L (20-31); CHLORIDE LEVEL 104 MMOL/L (98-107); CREATININE FOR GFR 0.94 MG/DL (0.55-1.30); GLOMERULAR FILTRATION RATE > 60.0 (>32); GLUCOSE, FASTING 120 MG/DL (74-106); POTASSIUM SERUM 4.1 MMOL/L (3.5-5.1); SODIUM LEVEL 140 MMOL/L (136-145)
== END ==
LOC: SKLAB3 09:32
PROVIDERS: ATTEND Internal Medicine
DX: R53.1 Weakness (principal)

== ENCOUNTER → 2024-10-30 | Outpatient (CLI) | payer MEDICARE, MEDICAID | LOC: M RAD 13:27 | PROVIDERS: ATTEND Nurse Practitioner | DX: M51.360 Other intervertebral disc degeneration, lumbar region with discogenic back pain only (principal); R53.1 Weakness ==

== ENCOUNTER → 2024-11-02 | Outpatient (REF) | payer MEDICARE, MEDICAID ==
[2024-11-02 10:02] LABS: HEMATOCRIT 34.2 % (36.0-47.0); HEMOGLOBIN 11.3 g/dl (12.0-15.5); MEAN CORPUSCULAR HEMOGLOBIN 30.8 pg (27.0-33.0); MEAN CORPUSCULAR VOLUME 93.2 fl (80.0-96.0); PLATELET COUNT, AUTOMATED 289 10^3/uL (150-450); RED BLOOD COUNT 3.67 10^6/uL (4.00-5.40); WHITE BLOOD COUNT 8.2 10^3/uL (4.0-10.0)
[2024-11-02 10:30] LABS: BLOOD UREA NITROGEN 23 MG/DL (9-23); CALCIUM LEVEL 8.2 MG/DL (8.3-10.6); CARBON DIOXIDE LEVEL 28 MMOL/L (20-31); CHLORIDE LEVEL 102 MMOL/L (98-107); CREATININE FOR GFR 0.91 MG/DL (0.55-1.30); GLOMERULAR FILTRATION RATE > 60.0 (>32); GLUCOSE, FASTING 163 MG/DL (74-106); POTASSIUM SERUM 3.2 MMOL/L (3.5-5.1); SODIUM LEVEL 140 MMOL/L (136-145)
== END ==
LOC: SKLAB3 08:09
PROVIDERS: ATTEND Internal Medicine
DX: R62.7 Adult failure to thrive (principal)

== ENCOUNTER → 2024-11-05 | Outpatient (REF) | payer MEDICARE, MEDICAID ==
[2024-11-05 12:31] LABS: HEMATOCRIT 34.8 % (36.0-47.0); HEMOGLOBIN 11.3 g/dl (12.0-15.5); MEAN CORPUSCULAR HEMOGLOBIN 30.2 pg (27.0-33.0); MEAN CORPUSCULAR HGB CONC 32.5 g/dl (32.0-36.5); PLATELET COUNT, AUTOMATED 310 10^3/uL (150-450); RED BLOOD COUNT 3.74 10^6/uL (4.00-5.40); WHITE BLOOD COUNT 10.6 10^3/uL (4.0-10.0)
[2024-11-05 12:56] LABS: CALCIUM LEVEL 8.9 MG/DL (8.3-10.6); CREATININE FOR GFR 0.93 MG/DL (0.55-1.30); GLOMERULAR FILTRATION RATE 59.9 (>32); POTASSIUM SERUM 3.9 MMOL/L (3.5-5.1)
== END ==
LOC: SKLAB3 11:01
PROVIDERS: ATTEND Internal Medicine
DX: R62.7 Adult failure to thrive (principal)

== ENCOUNTER → 2024-12-16 | Outpatient (REF) | payer MEDICARE, MEDICAID ==
[~2024-12-16] MED LIST changes: -FLOM0.4C39 PO; +TAMS-18 PO
[2024-12-16 12:27] LABS: APPEARANCE, URINE HAZY (CLEAR); BACTERIA, URINE AUTO 1+ (NEGATIVE); BILIRUBIN, URINE AUTO NEGATIVE (NEGATIVE); BLOOD, URINE BLOOD NEGATIVE (NEGATIVE); COLOR, URINE YELLOW (YELLOW); GLUCOSE, URINE (UA) AUTO NEGATIVE (NEGATIVE); KETONE, URINE AUTO NEGATIVE (NEGATIVE); LEUKOCYTE ESTERASE, URINE AUTO 3+ (NEGATIVE); MUCUS, URINE SMALL (NEGATIVE); NITRITE, URINE AUTO NEGATIVE (NEGATIVE); PROTEIN, URINE AUTO NEGATIVE (NEGATIVE); RBC, URINE AUTO 8 /HPF (0-3); SPECIFIC GRAVITY URINE AUTO 1.011 (1.002-1.035); SQUAMOUS EPITHELIAL CELL UR AU 10 /HPF (0-6); WBC, URINE AUTO 72 /HPF (0-3)
== END ==
LOC: SKLAB3 08:47
PROVIDERS: ATTEND Internal Medicine
DX: R82.998 Other abnormal findings in urine (principal)

== ENCOUNTER → 2025-02-27 | Outpatient (REF) | payer MEDICARE, MEDICAID ==
[2025-02-27 07:33] LABS: BASO # 0.0 10^3/uL (0.0-0.2); BASO % 0.5 % (0.0-1.0); EOS # 0.3 10^3/uL (0.0-0.5); EOS % 4.4 % (0.0-3.0); LYMPH # 2.0 10^3/uL (1.5-5.0); LYMPH % 26.2 % (24.0-44.0); MONO # 0.6 10^3/uL (0.0-0.8); MONO % 7.9 % (2.0-8.0); NEUTROPHILS # 4.5 10^3/uL (1.5-8.5); NEUTROPHILS % 60.7 % (36.0-66.0); PLATELET COUNT, AUTOMATED 302 10^3/uL (150-450)
[2025-02-27 08:08] LABS: ALT/SGPT 25.0 U/L (7.0-40); AST/SGOT 31.0 U/L (<34); CALCIUM LEVEL 8.7 MG/DL (8.3-10.6); CARBON DIOXIDE LEVEL 29.0 MMOL/L (20-31); CHLORIDE LEVEL 105.0 MMOL/L (98-107); CREATININE FOR GFR 0.66 MG/DL (0.55-1.30); GLOMERULAR FILTRATION RATE 85.4 (>32); POTASSIUM SERUM 3.6 MMOL/L (3.5-5.1); SODIUM LEVEL 144.0 MMOL/L (136-145)
== END ==
LOC: SKLAB3 01:18
PROVIDERS: ATTEND Internal Medicine
DX: R82.998 Other abnormal findings in urine (principal); Z79.899 Other long term (current) drug therapy

== ENCOUNTER → 2025-03-23 | Outpatient (REF) | payer MEDICARE, MEDICAID ==
[2025-03-23 09:09] LABS: PLATELET COUNT, AUTOMATED 283 10^3/uL (150-450)
[2025-03-23 09:17] LABS: ESTIMATED AVERAGE GLUCOSE 114.0 MG/DL (60-110)
[2025-03-23 09:37] LABS: ALT/SGPT 30.0 U/L (7.0-40); AST/SGOT 28.0 U/L (<34); CALCIUM LEVEL 9.0 MG/DL (8.3-10.6); CARBON DIOXIDE LEVEL 29.0 MMOL/L (20-31); CHLORIDE LEVEL 105.0 MMOL/L (98-107); CREATININE FOR GFR 0.67 MG/DL (0.55-1.30); GLOMERULAR FILTRATION RATE 84.5 (>32); POTASSIUM SERUM 3.9 MMOL/L (3.5-5.1); SODIUM LEVEL 143.0 MMOL/L (136-145)
[2025-03-23 09:41] LABS: VITAMIN B12 LEVEL 430.0 PG/ML (211-911)
[2025-03-23 09:42] LABS: TOTAL 25(OH) VITAMIN D 63.6 NG/ML (20.0-100.0)
== END ==
LOC: SKLAB3 07:00
PROVIDERS: ATTEND Internal Medicine
DX: E55.9 Vitamin D deficiency, unspecified (principal); F03.90 Unspecified dementia, unspecified severity, without behavioral disturbance, psychotic disturbance, mood disturbance, and anxiety; Z79.899 Other long term (current) drug therapy